=== PATIENT | female | born 1955 | race Caucasian/White ===

== ENCOUNTER → 2017-08-23 | Outpatient (CLI) | payer OTHER ==
--- NOTE | 2017-08-23 12:49 | BD ---
EXAMINATION TYPE: MG DEXA axial skeleton. DATE OF EXAM: 08/23/2017 Comparison: Prior DEXA bone scan February 27, 2013. CLINICAL HISTORY: Height: 68 inches Weight: 202 FRAX RISK QUESTIONS: Alcohol (3 or more units per day): no Family History (Parent hip fracture): no Glucocorticoids (More than 3mos): no (Ex: prednisone, prednisolone, methylprednisolone, dexamethasone, and hydrocortisone). History of Fracture in Adulthood: yes Secondary Osteoporosis: 1. Type 1 Diabetes: no 2. Hyperthyroidism: no 3. Menopause before 45: no 4. Malnutrition: no 5. Chronic liver disease: no Rheumatoid Arthritis: no Current Tobacco Use: no RISK FACTORS HISTORY OF: Spine Fracture: "tailbone" When: 4 years ago-steroid injections then Family History of Osteoporosis: yes, mother Active: yes Diet low in dairy products/other sources of calcium: no Postmenopausal woman: yes Take estrogen and/or progesterone medications: yes How long: over 10 years Lost more than 2 inches in height since high school: no Frequent falls: no Poor Health: no Hyperparathyroidism: no Adrenal Insufficiency: no MEDICATIONS: Prednisone or other steroids: no Thyroid Medications: no Osteoporosis Medications: no Additional Medications: Vitamin D, multivitamin; blood pressure med EXAM MEASUREMENTS: Bone mineral densitometry was performed using the [employer] System. Bone mineral density as measured about the Lumbar spine is: ----- L1-L4(G/cm2): 1.325 T Score Values are as follows: ----- L2: 1.0 ----- L3: 1.2 ----- L4: 1.1 ----- L1-L4: 1.2 Bone mineral density has: Decreased -1.8 since the study of 02/27/2013 Bone mineral density about the R hip (g/cm2): 1.148 Bone mineral density about the L hip (g/cm2): 1.117 T Score values are as follows: ----- R Neck: 0.8 ----- L Neck: 0.6 ----- R Total: 1.0 ----- L Total: 0.5 Bone mineral density has decreased -0.1 since the study of 02/27/2013 IMPRESSION: Normal (Values between +1 and -1 indicate normal bone mass). Consider repeating this study in 5 year s or sooner if there is some new clinical indication. NOTE: T-SCORE=SD OF THE YOUNG ADULT MEAN.
--- NOTE | 2017-08-24 11:36 | MM ---
Reason for exam: screening (asymptomatic). Last mammogram was performed 1 year and 4 months ago. History: Patient is postmenopausal. Family history of breast cancer in paternal aunt at age 70 and breast cancer in paternal aunt at age 75. Took hormonal contraceptives for 7 years. Taking estrogen for 5 years beginning at age 49. Taking progesterone for 5 years beginning at age 49. Taking other hormone for 5 years. Physical Findings: A clinical breast exam by your physician is recommended on an annual basis and results should be correlated with mammographic findings. MG 3D Screening Mammo W/Cad Bilateral CC and MLO view(s) were taken. Prior study comparison: April 20, 2016, bilateral MG 3d screening mammo w/cad. March 25, 2015, bilateral MG screening mammo w CAD. There are scattered fibroglandular densities. There is chronic nodularity bilaterally. No significant changes when compared with prior studies. ASSESSMENT: Benign, BI-RAD 2 RECOMMENDATION: Routine screening mammogram of both breasts in 1 year.
== END | disposition home or self-care (01) ==
LOC: RADMAMWWP 09:43
PROVIDERS: ATTEND Obstetrics & Gynecology
DX: Z12.31 Encounter for screening mammogram for malignant neoplasm of breast (principal); Z13.820 Encounter for screening for osteoporosis
CPT/HCPCS: 77063; 77067; 77080

== ENCOUNTER → 2018-08-08 | Outpatient (CLI) | payer OTHER ==
--- NOTE | 2018-08-08 12:13 | NM ---
EXAMINATION TYPE: NM stress cardiolite complete DATE OF EXAM: 08/08/2018 COMPARISON: NONE HISTORY: Chest pain TECHNIQUE: After the intravenous administration of 10.0 mCi Tc 99m Sestamibi - Rest images obtained 45 minutes post injection. The patient exercised using a PRAKASH protocol and 1 minute prior to peak exercise was injected with 25.6 mCi Tc 99m Sestamibi - Stress images obtained 15 minutes post injecti on. FINDINGS: Targeted heart rate was achieved during performance of the study. Review of stress and rest SPECT [place] ges demonstrates small matched defect involving the apical lateral portion of the myocardium. This co uld be artifactual. Gated analysis shows normal wall motion with an estimated left ventricular eject ion fraction of 68 %. IMPRESSION: No scintigraphic evidence for reversible ischemia
--- NOTE | 2018-08-08 13:36 | EST ---
EXERCISE STRESS DATE OF SERVICE: 08/08/2018 AGE: 63 SEX: Female HT: 5'8" WT: 215 pounds PROTOCOL: Cardiolite Osman STAGE: II DURATION OF EXERCISE: 6 minutes HEART RATE REST: 64 BLOOD PRESSURE REST: 139/80 MAXIMUM HEART RATE ACHIEVED: 148 MAXIMUM BLOOD PRESSURE: 204/84 85% MPHR: 133 100% MPHR: 157 METS: 7.9 INDICATIONS: Chest pain. CLINICAL INFORMATION: STRESS DATA: Pretesting physical examination showed a heart rate of 64, pressure is 139/80 mmHg. Baseline EKG showed sinus mechanism. The patient exercised on the treadmill according to Osman protocol for a total of 6 minutes and achieved 7.9 METs. Max heart rate was 148, which is about 94% of maximum predicted heart rate. Maximum blood pressure was was 204/84 mmHg. Clinically the patient did not have any symptoms of chest pain or discomfort but she felt tired. The EKG did not show any significant ST or T-wave abnormalities concerning for ischemia. CONCLUSION: 1. Average exercise tolerance. 2. Exaggerated blood pressure in response to exercise. 3. No evidence of any ST or T-wave abnormalities concerning for ischemia. 4. Please follow up on the Cardiolite portion on separate report. MMODL / IJN: [id number] /
== END | disposition home or self-care (01) ==
LOC: RADNMMAIN 08:13
PROVIDERS: ATTEND Family Medicine
DX: R07.9 Chest pain, unspecified (principal)
CPT/HCPCS: 93017; 78452; A9500

== ENCOUNTER → 2018-09-19 | Outpatient (CLI) | payer OTHER ==
--- NOTE | 2018-09-21 08:54 | MM ---
Reason for exam: screening (asymptomatic). Last mammogram was performed 1 year and 1 month ago. History: Patient is postmenopausal. Family history of breast cancer in paternal aunt at age 70 and breast cancer in paternal aunt at age 75. Took hormonal contraceptives for 7 years. Taking estrogen for 14 years beginning at age 49. Taking progesterone for 14 years beginning at age 49. Taking other hormone for 5 years. Physical Findings: A clinical breast exam by your physician is recommended on an annual basis and results should be correlated with mammographic findings. MG 3D Screening Mammo W/Cad Bilateral CC and MLO view(s) were taken. Prior study comparison: August 23, 2017, bilateral MG 3d screening mammo w/cad. April 20, 2016, bilateral MG 3d screening mammo w/cad. The breast tissue is almost entirely fat. There is chronic nodularity bilaterally. No significant changes when compared with prior studies. ASSESSMENT: Benign, BI-RAD 2 RECOMMENDATION: Routine screening mammogram of both breasts in 1 year.
== END | disposition home or self-care (01) ==
LOC: RADMAMWWP 09:15
PROVIDERS: ATTEND Obstetrics & Gynecology
DX: Z12.31 Encounter for screening mammogram for malignant neoplasm of breast (principal)
CPT/HCPCS: 77063; 77067

== ENCOUNTER → 2019-05-15 | Outpatient (CLI) | payer OTHER ==
--- NOTE | 2019-05-15 07:56 | MR ---
EXAMINATION TYPE: MR knee RT wo con DATE OF EXAM: 05/15/2019 COMPARISON: NONE HISTORY: Pain R knee, unilateral primary osteoarthritis, and derangement medial meniscus due to old t ear or injury all pertinent order. Inner knee pain for 3 to 4 months with swelling with history of si gnificant fall injury 20 years ago per patient. TECHNIQUE: Multiplanar, multisequence images of the knee is performed without IV contrast. FINDINGS: MEDIAL MENISCUS: Anterior horn is intact without tear. There is fraying along superior surface centra l avascular zone sagittal image 6 with oblique increased signal posterior horn extending to inferior articular surface. Medial bulging medial meniscus with abnormal signal seen on coronal images. LATERAL MENISCUS: Anterior and posterior horns are intact without tear. CRUCIATE LIGAMENTS: The anterior and posterior cruciate ligaments are intact and unremarkable. COLLATERAL LIGAMENTS: The medial collateral ligament and lateral collateral ligament complex are inta ct. Medial collateral ligament shows slight medial bulging and surrounding fluid coronal image 19. EXTENSOR MECHANISM: Visualized quadriceps and patellar tendons are intact. EFFUSION: Moderate to large size suprapatellar joint effusion. POPLITEAL CYST: No popliteal/hong cyst. TRICOMPARTMENT SPACES: Mild to moderate tricompartment joint space loss and mild spurring. CARTILAGE: Thinning of articular cartilage medial tibiofemoral compartment with some fissuring and ca rtilaginous loss posterior aspect patella consistent with chondromalacia patella. No full thickness l oss is identified. BONE MARROW SIGNAL: No focal abnormal marrow signal is appreciated. OTHER: No additional significant abnormality is appreciated. IMPRESSION: 1. Full-thickness tear posterior horn medial meniscus. Tear also involves the central body. 2. Mild to moderate tricompartment degenerative changes most prominent patellofemoral and medial tibi ofemoral compartments. 3. Moderate to large-sized suprapatellar joint effusion. 4. Mild MCL sprain injury.
== END | disposition home or self-care (01) ==
LOC: RADMRIMAIN 06:06
PROVIDERS: ATTEND Orthopaedic Surgery
DX: M17.11 Unilateral primary osteoarthritis, right knee (principal); S83.411A Sprain of medial collateral ligament of right knee, initial encounter; S83.241A Other tear of medial meniscus, current injury, right knee, initial encounter

== ENCOUNTER → 2020-08-14 | Outpatient (CLI) | payer MEDICARE, BC ==
--- NOTE | 2020-08-14 18:48 | BD ---
EXAMINATION TYPE: Axial Bone Density DATE OF EXAM: 08/14/2020 COMPARISON: 08/23/2017 CLINICAL HISTORY: 65-year-old female postmenopausal screening Height: 5 FT 8 06/24 IN Weight: 226 FRAX RISK QUESTIONS: Alcohol (3 or more units per day): NO Family History (Parent hip fracture): NO Glucocorticoids (More than 3mos): NO (Ex: prednisone, prednisolone, methylprednisolone, dexamethasone, and hydrocortisone). History of Fracture in Adulthood: YES Secondary Osteoporosis: 1. Type 1 Diabetes: NO 2. Hyperthyroidism: NO 3. Menopause before 45: NO 4. Malnutrition: NO 5. Chronic liver disease: FATTY Rheumatoid Arthritis: NO Current Tobacco Use: NO RISK FACTORS HISTORY OF: Family History of Osteoporosis: YES Active: YES Diet low in dairy products/other sources of calcium: NO Postmenopausal woman: AGE 55 Take estrogen and/or progesterone medications: TAKING HRT FOR APPROX 16 YEARS Lost more than 2 inches in height since high school: NO MEDICATIONS: Additional Medications: HYDROCHLOROTHIAZIDE, HRT Additional History: EXAM MEASUREMENTS: Bone mineral densitometry was performed using the [employer] System. Bone mineral density as measured about the Lumbar spine is: ----- L1-L4(G/cm2): 1.307 T Score Values are as follows: ----- L2: 1.0 ----- L3: 1.5 ----- L4: 0.2 ----- L1-L4: 1.1 Bone mineral density has: DECREASED -2.0 % since study of: 2017 Bone mineral density about the R hip (g/cm2): 1.122 Bone mineral density about the L hip (g/cm2): 1.130 T Score values are as follows: -----R Neck: 0.6 -----L Neck: 0.7 -----R Total: 0.8 -----L Total: 0.5 Bone mineral density has: DECREASED -1.1 % since study of: 2017 IMPRESSION: Normal (Values between +1 and -1 indicate normal bone mass). Consider repeating this study in 5 year s or sooner if there is some new clinical indication. NOTE: T-SCORE=SD OF THE YOUNG ADULT MEAN.
--- NOTE | 2020-08-16 11:36 | MM ---
Reason for exam: screening (asymptomatic). Last mammogram was performed 1 year and 11 months ago. History: Patient is postmenopausal. Family history of breast cancer in paternal aunt at age 70 and breast cancer in paternal aunt at age 75. Took hormonal contraceptives for 7 years. Taking estrogen for 16 years beginning at age 49. Taking progesterone for 16 years beginning at age 49. Taking other hormone for 5 years. Physical Findings: A clinical breast exam by your physician is recommended on an annual basis and results should be correlated with mammographic findings. MG 3D Screening Mammo W/Cad Bilateral CC and MLO view(s) were taken. Prior study comparison: September 19, 2018, bilateral MG 3d screening mammo w/cad. August 23, 2017, bilateral MG 3d screening mammo w/cad. There are scattered fibroglandular densities. There is chronic nodularity bilaterally. There is no discrete abnormality. ASSESSMENT: Benign, BI-RAD 2 RECOMMENDATION: Routine screening mammogram of both breasts in 1 year.
== END ==
LOC: RADMAMWWP 14:06
PROVIDERS: ATTEND Family Medicine
DX: Z12.31 Encounter for screening mammogram for malignant neoplasm of breast (principal); Z78.0 Asymptomatic menopausal state
CPT/HCPCS: 77063; 77067; 77080

== ENCOUNTER 2021-07-23 10:13 | Day surgery (SDC) | payer MEDICARE, BC ==
[2021-07-18 14:05] VITALS: BMI 31.9
[~2021-07-23 10:13] MED LIST: LACTATED RINGERS 1,000 ML IV SCH; LIDOCAINE 1% (10MG/ML) FOR IV START INTRADERMA PRN
[2021-07-23 10:44] VITALS: TEMP 98.4
[2021-07-23] MEDS ORDERED: fentaNYL (PF) 50 MCG/ML 2 ML AMP ONE (10:47)
[2021-07-23] MEDS ORDERED: PROPOFOL 10 MG/ML 20 ML VIAL IV ONE (10:47)
[2021-07-23] MEDS ORDERED: MIDAZOLAM 2 MG/2 ML VIAL ONE (10:47)
--- NOTE | 2021-07-23 11:10 | P.PCN ---
Date of Procedure: 07/23/21 Procedure(s) Performed: BRIEF HISTORY: Patient is a 66-year-old pleasant female scheduled for an elective colonoscopy as a part of screening for colorectal neoplasia. She had a brother who was diagnosed with colon cancer at age 60. PROCEDURE PERFORMED: Colonoscopy with snare polypectomy. PREOPERATIVE DIAGNOSIS: Screening for colon cancer and family history of colon cancer. IV sedation per Anesthesia. PROCEDURE: After informed consent was obtained, the patient, was brought into the endoscopy unit. IV sedation was administered by Anesthesia under continuous monitoring. Digital rectal examination was normal. Initially the Olympus CF-160 flexible video colonoscope was then inserted in the rectum, gradually advanced into the cecum without any difficulty. Careful examination was performed as the scope was gradually being withdrawn. Ileocecal valve and the appendiceal orifice were visualized and appeared normal. Prep was excellent. Mucosa of the cecum, ascending colon, appeared normal. The transverse colon there was a 1 mm polyp removed by snare polypectomy. Rest of the transverse colon, descending colon, sigmoid colon, and rectum appeared normal. Scattered sigmoid diverticula seen. Retroflexion was performed in the rectum and no lesions were seen. The patient tolerated the procedure well. IMPRESSION: 1 cm transverse colon polyp status post polypectomy Scattered sigmoid diverticulosis Recommendations Findings of this examination were discussed with the patient as well as a family.she was advised to follow with the biopsy results. If the biopsy reveals adenoma she can have a repeat colonoscopy in 3 years. .
[2021-07-23 11:28] VITALS: BP 155/67; PULSE 78; RESP 18
== END 2021-07-23 11:48 | disposition home or self-care (01) ==
LOC: ORWHC2ENDO 10:13
PROVIDERS: ATTEND Internal Medicine Gastroenterology
DX: Z12.11 Encounter for screening for malignant neoplasm of colon (principal); Z80.0 Family history of malignant neoplasm of digestive organs; K57.30 Diverticulosis of large intestine without perforation or abscess without bleeding; D12.3 Benign neoplasm of transverse colon
CPT/HCPCS: 45385; 88305; J2250; J3010; J2704

== ENCOUNTER → 2021-08-20 | Outpatient (CLI) | payer MEDICARE, BC ==
--- NOTE | 2021-08-21 14:41 | MM ---
Reason for exam: screening (asymptomatic). Last mammogram was performed 1 year ago. History: Patient is postmenopausal. Family history of breast cancer in paternal aunt at age 70 and breast cancer in paternal aunt at age 75. Took hormonal contraceptives for 7 years. Taking estrogen for 16 years beginning at age 49. Taking progesterone for 16 years beginning at age 49. Taking other hormone for 5 years. Physical Findings: A clinical breast exam by your physician is recommended on an annual basis and results should be correlated with mammographic findings. MG 3D Screening Mammo W/Cad Bilateral CC and MLO view(s) were taken. Prior study comparison: August 14, 2020, bilateral MG 3d screening mammo w/cad. September 19, 2018, bilateral MG 3d screening mammo w/cad. No significant changes when compared with prior studies. ASSESSMENT: Benign, BI-RAD 2 RECOMMENDATION: Routine screening mammogram of both breasts in 1 year.
== END | disposition home or self-care (01) ==
LOC: RADMAMWWP 15:51
PROVIDERS: ATTEND Obstetrics & Gynecology
DX: Z12.31 Encounter for screening mammogram for malignant neoplasm of breast (principal); Z78.0 Asymptomatic menopausal state; Z80.3 Family history of malignant neoplasm of breast
CPT/HCPCS: 77063; 77067

== ENCOUNTER → 2022-09-10 | Outpatient (CLI) | payer MEDICARE, BC ==
--- NOTE | 2022-09-11 09:07 | MM ---
Reason for Exam: Screening (asymptomatic). Last screening mammogram was performed 12 month(s) ago. Patient History: Menarche at age 13. First Full-Term at age 27. Postmenopausal. Patient has history of breast feeding. Currently using Estrogen, beginning at age 49 for 16 years. Currently using Progesterone, beginning at age 49 for 16 years. Patient used Hormonal Contraceptives for 7 years. Paternal aunt had breast cancer, age 70. Paternal aunt had breast cancer, age 75. Risk Values: [place] 5 year model risk: 1.9%. NCI Lifetime model risk: 6.4%. Prior Study Comparison: 09/19/2018 Bilateral Screening Mammogram, [facility]. 08/14/2020 Bilateral Screening Mammogram, [facility]. 08/20/2021 Bilateral Screening Mammogram, [facility]. Tissue Density: There are scattered fibroglandular densities. Findings: Analyzed By CAD. There is no suspicious group of microcalcifications or new suspicious mass in either breast. Chronic nodularity bilaterally. Overall Assessment: Benign, BI-RAD 2 Management: Screening Mammogram of both breasts in 1 year. A clinical breast exam by your physician is recommended on an annual basis and results should be correlated with mammographic findings. Electronically signed and approved by: Stephen Ellis D.O.
== END | disposition home or self-care (01) ==
LOC: RADMAMWWP 10:22
PROVIDERS: ATTEND Obstetrics & Gynecology
DX: Z12.31 Encounter for screening mammogram for malignant neoplasm of breast (principal); Z78.0 Asymptomatic menopausal state; Z80.3 Family history of malignant neoplasm of breast
CPT/HCPCS: 77063; 77067

== ENCOUNTER → 2023-04-14 | Outpatient (CLI) | payer MEDICARE, BC ==
[2023-04-14 17:43] VITALS: BP 173/96; PULSE 80; TEMP 98; BMI 35.6
--- NOTE | 2023-04-14 17:50 | P.BASOAP ---
Subjective Progress Note Date: 04/14/23 She has past ventral hernia with pain and risk of recurrent incarcerated hernia. Has scar that itches. Did not get injections due to cost. CT benefit. She has hypertrophic scarring. Colon with tubular adenoma. Objective - Vital Signs Vital signs: Vital Signs Temp 98 F 04/14/23 17:31 Pulse 80 04/14/23 17:31 Resp BP 173/96 04/14/23 17:31 Pulse Ox FiO2 Intake & Output 04/13/23 04/14/23 04/14/23 18:59 06:59 18:59 Weight 106.141 kg Assessment/Plan Plan: Date: 04/14/23 Initial Weight: Initial BMI: Current Weight: 106.141 kg Current BMI: 35.6 Type of Surgery: Total Volume in Band: Previous Volume: Volume Removed: Volume Added: Band Size:
== END ==
LOC: BARWHC3 16:25
PROVIDERS: ATTEND Surgery Plastic and Reconstructive Surgery
DX: Z53.9 Procedure and treatment not carried out, unspecified reason (principal)
CPT/HCPCS: 99211

== ENCOUNTER → 2023-04-22 | Outpatient (CLI) | payer MEDICARE, BC ==
[2023-04-22 13:42] LABS: ALT 29 U/L (4-34); AST 34 U/L (14-36); African American GFR (CKD) >90 (>60 ml/min/1.73 sqM); Albumin 4.6 g/dL (3.5-5.0); Albumin/Globulin Ratio 1.4; Alkaline Phosphatase 90 U/L (38-126); Anion Gap 10 mmol/L; Blood Urea Nitrogen 16 mg/dL (7-17); Carbon Dioxide 30 mmol/L (22-30); Chloride 100 mmol/L (98-107); Globulin 3.3 g/dL; Glucose 113 mg/dL (74-99); Non-African American GFR(CKD) >90 (>60 ml/min/1.73 sqM); Sodium 140 mmol/L (137-145); Total Bilirubin 0.6 mg/dL (0.2-1.3); Total Protein 7.9 g/dL (6.3-8.2)
[2023-04-22 14:59] LABS: INR 0.9 (<1.2); Partial Thromboplastin Time 23.8 sec (22.0-30.0); Prothrombin Time 10.1 sec (10.0-12.5)
--- NOTE | 2023-04-22 22:19 | CT ---
EXAMINATION TYPE: CT abdomen pelvis w con DATE OF EXAM: 04/22/2023 COMPARISON: None INDICATION: pre surgical DLP: 1464.7 mGycm, Automated exposure control for dose reduction was used. CONTRAST: 100 mL of Isovue 300. Study performed with Oral Contrast TECHNIQUE: Axial images were obtained from above the diaphragm to the pubic rami in the axial plane a t 5 mm thick sections. Reconstructed images are reviewed on the computer in the coronal plane. FINDINGS: Limited CT sections are obtained the lung bases. The lung bases are clear. Distal esophageal region appears somewhat love on the delayed images then the early images which could indicate a subtle hi atal hernia present. Stomach with contrast appears within normal limits. No suspicious changes of obs truction through the bowel loops. CT ABDOMEN: Liver: There is mild to moderate fatty infiltration of the liver. No discrete masses are evident. Spleen: Normal Pancreas: Normal Adrenal glands: The adrenal glands are normal. Gallbladder: Surgically absent Kidneys: No masses are evident. No hydronephrosis is present. No cysts are present. Delayed images were obtained through the kidneys, which remain unremarkable. Aorta: Normal Inferior vena cava: Normal. CT PELVIS: Oral contrast extends to the distal small bowel loops and cecum. Scattered diverticuli within the sig moid colon. There are loops of bowel which are incompletely distended or lack oral contrast limiting their evaluation. Appendix: Normal as visualized. Urinary bladder: Normal. Genitourinary structures: Uterus appears unremarkable. Adnexa are normal. Osseous structures: No suspicious lytic or sclerotic lesions. Mild facet degenerative changes within the lumbar spine. IMPRESSION: 1. Mild to moderate fatty infiltration of the liver. 2. Mild diverticulosis without acute diverticulitis. 3. Minimal hiatal hernia not excluded on this exam.
[2023-04-23 02:55] LABS: Prealbumin 25.9 mg/dL (18.0-42.0)
[2023-04-23 03:56] LABS: % Iron Saturation 25.54 (12.00-45.00); Iron 95 UG/DL (50-170); Phosphorus 2.5 mg/dL (2.4-5.1); Total Iron Binding Capacity 372 UG/DL (228-460)
[2023-04-23 04:40] LABS: HCT 49.8 % (37.2-46.3); HGB 15.7 d/dL (12.0-15.0); MCH 29.8 pg (27.0-32.0); MCHC 31.5 d/dL (32.0-37.0); MCV 94.7 FL (80.0-97.0); Mean Platelet Volume 11.7 FL (9.5-12.2); NRBC Per 100 WBC 0 X 10*3/uL (0.00-0.01); Platelet Count 310 X 10*3/uL (140-440); RBC 5.26 X 10*6/uL (4.10-5.20); RDW 13.2 % (11.5-14.5)
[2023-04-24 07:15] LABS: Zinc, Serum 120 ug/dL (60-130)
== END | disposition home or self-care (01) ==
LOC: RADCTMAIN 12:04
PROVIDERS: ATTEND Surgery Plastic and Reconstructive Surgery
DX: K57.30 Diverticulosis of large intestine without perforation or abscess without bleeding (principal); K44.9 Diaphragmatic hernia without obstruction or gangrene; K76.0 Fatty (change of) liver, not elsewhere classified; K91.2 Postsurgical malabsorption, not elsewhere classified; K50.90 Crohn's disease, unspecified, without complications; D50.8 Other iron deficiency anemias; E44.0 Moderate protein-calorie malnutrition; E45 Retarded development following protein-calorie malnutrition; K74.1 Hepatic sclerosis; N19 Unspecified kidney failure; T56.894A Toxic effect of other metals, undetermined, initial encounter
CPT/HCPCS: 84255; 84134; 84425; 80061; 80053; 82607; 82728; 82525; 82746; 83540; 83550; 83735; 84100; 84443; 84590; 84630; 85027; 85610; 85730; 82306; 83970; 83036; 80307; 74177; 36415; 93005; G0480; Q9967; 80323

== ENCOUNTER 2023-06-07 06:40 | Day surgery (SDC) | payer MEDICARE, BC ==
[2023-06-07] MEDS ORDERED: LIDOCAINE 1% (10MG/ML) FOR IV START INTRADERMA PRN (07:00)
[2023-06-07] MEDS ORDERED: LACTATED RINGERS 1,000 ML IV SCH (07:00)
[2023-06-07] MEDS ORDERED: DEXAMETHASONE SOD PHOSPHATE 4 MG/ML 1 ML VIAL IVP ONE (07:11)
[2023-06-07] MEDS ORDERED: ONDANSETRON 4 MG/2 ML VIAL IVP ONE (07:11)
[2023-06-07] MEDS ORDERED: ONDANSETRON 4 MG/2 ML VIAL ONE (07:14)
[2023-06-07] MEDS ORDERED: LACTATED RINGERS 1,000 ML IV ONE (07:15)
[2023-06-07 07:16] VITALS: TEMP 98.7
[2023-06-07] MEDS ORDERED: LIDOCAINE 1% INJ 10MG/ML (20 ML MDV) ONE (07:29)
[2023-06-07] MEDS ORDERED: PROPOFOL 10 MG/ML 20 ML VIAL IV ONE (07:29)
--- NOTE | 2023-06-07 07:33 | P.GSHP ---
History of Present Illness H&P Date: 06/07/23 CHIEF COMPLAINT: GERD HISTORY OF PRESENT ILLNESS: The patient is a 68-year-old female who presents reports gastroesophageal reflux disease. Upper endoscopy was offered for further evaluation and management. PAST MEDICAL HISTORY: Please see list. PAST SURGICAL HISTORY: Please see list. MEDICATIONS: Please see list. ALLERGIES: Please see list. SOCIAL HISTORY: No illicit drug use FAMILY HISTORY: No reports of Crohn disease or ulcerative colitis. REVIEW OF ORGAN SYSTEMS: CONSTITUTIONAL: No reports of fevers or chills. GI: Denies any blood in stools or constipation. PHYSICAL EXAM: VITAL SIGNS: Stable GENERAL: Well-developed and pleasant in no acute distress. HEENT: No scleral icterus. Extraocular movements grossly intact. Moist buccal mucosa. NECK: Supple without lymphadenopathy. CHEST: Unlabored respirations. Equal bilateral excursions. CARDIOVASCULAR: Regular rate and rhythm. Distal 2+ pulses. ABDOMEN: Soft, nondistended. MUSCULOSKELETAL: No clubbing, cyanosis, or edema. ASSESSMENT: 1. Gastroesophageal reflux disease PLAN: 1. Recommend proceeding with an upper endoscopy Past Medical History Past Medical History: Hyperlipidemia, Hypertension, Liver Disease Additional Past Medical History / Comment(s): FATTY LIVER. hx pancreatitis History of Any Multi-Drug Resistant Organisms: None Reported Past Surgical History: Section, Cholecystectomy, Hernia Repair, Joint Replacement, Orthopedic Surgery, Tonsillectomy Additional Past Surgical History / Comment(s): rt knee replacement, radha cataracts, incisional hernia repair, bunionectomy rt foot, neuroma removed rt foot, surgery for broken achilles tendon left foot, D&C x 2, radha cataracts Past Anesthesia/Blood Transfusion Reactions: Postoperative Nausea & Vomiting (PONV) Additional Past Anesthesia/Blood Transfusion Reaction / Comment(s): PONV AFTER GALL BLADDER SURGERY. Smoking Status: Never smoker - Past Family History Brother(s) Family Medical History: Cancer, Deep Vein Thrombosis (DVT) Additional Family Medical History / Comment(s): COLON CANCER Sister(s) Family Medical History: Deep Vein Thrombosis (DVT) Father Family Medical History: No Reported History Medications and Allergies Home Medications Medication Instructions Recorded Confirmed Type Multivit-Min/FA/Lycopen/Lutein 1 each PO DAILY 03/19/16 06/07/23 History [Centrum Silver Tablet] Tinnitus Formula Supplement 1 tab PO BID 03/19/16 06/07/23 History L.acidoph,Paracasei, B.lactis 1 each PO DAILY 07/18/21 06/07/23 History [Probiotic] Medroxyprogesterone Acetate 2.5 mg PO HS 07/18/21 06/07/23 History [Provera] Vitamin D3(Dose Unknown) 1 tab PO HS 07/18/21 06/07/23 History estradioL [Estradiol] 0.5 mg PO HS 07/18/21 06/07/23 History hydroCHLOROthiazide 50 mg PO QAM 07/18/21 06/07/23 History Ubidecarenone [Co Q-10] 30 mg PO DAILY 12/30/22 06/07/23 History Vitamin C/Biotin [Hair, Skin and 1 tab PO DAILY 12/30/22 06/07/23 History Nails Chew] Allergies Allergy/AdvReac Type Severity Reaction Status Date / Time Sulfa (Sulfonamide Allergy Severe Rash/Hives Verified 06/07/23 07:04 Antibiotics) tetracycline [Tetracycline] Allergy Rash/MUSCLE Verified 06/07/23 07:04 STIFFNESS,"joints froze" Surgical - Exam Vital Signs Temp Pulse Resp BP Pulse Ox 98.7 F 73 17 184/91 96 06/07/23 07:06 06/07/23 07:06 06/07/23 07:06 06/07/23 07:06 06/07/23 07:06
--- NOTE | 2023-06-07 07:48 | P.PCN ---
Date of Procedure: 06/07/23 Description of Procedure: PREOPERATIVE DIAGNOSIS: Gastroesophageal reflux disease. Morbid obesity. POSTOPERATIVE DIAGNOSIS: Gastroesophageal reflux disease. Morbid obesity. Gastritis. Diaphragmatic hiatal hernia OPERATION: Esophagogastroduodenoscopy with biopsies along esophagus, antrum and duodenum SURGEON: Beverly Hamm MD ANESTHESIA: MAC. INDICATIONS: The patient is a 68-year-old female who presents with reflux disease. Benefits and risks of the procedure were described. Informed consent was obtained. DESCRIPTION: The patient was brought into the endoscopy suite and laid in the left lateral decubitus position. An Olympus gastroscope was passed along the posterior oropharynx down to the distal esophagus where the squamocolumnar junction was encountered at 40 cm from the incisors. The stomach was entered and no bile reflux was found. Additional findings are listed below. Biopsies with cold forceps were obtained of the antrum. The first through third portion of the duodenum was examined. Retroflexion of the scope confirmed Hill grade 2 lower esophageal valve. The squamocolumnar junction demonstrated LA grade B erosive esophagitis. The stomach was desufflated. The patient tolerated the procedure well. FINDINGS: Squamocolumnar junction 40 cm from the incisors. Diaphragmatic hiatus at 43 cm. Hiatal hernia, 3 cm Hill grade 3 lower esophageal valve. LA grade B erosive esophagitis. Biopsies obtained Biopsies obtained of the duodenum. Chronic gastritis with biopsies obtained. Gastric polyps identified RECOMMENDATIONS: Upper endoscopy as needed. Plan - Discharge Summary Discharge Rx Participant: No New Discharge Prescriptions: Continue Tinnitus Formula Supplement 1 tab PO BID Multivit-Min/FA/Lycopen/Lutein [Centrum Silver Tablet] 1 each PO DAILY hydroCHLOROthiazide 50 mg PO QAM estradioL [Estradiol] 0.5 mg PO HS L.acidoph,Paracasei, B.lactis [Probiotic] 1 each PO DAILY Ubidecarenone [Co Q-10] 30 mg PO DAILY Medroxyprogesterone Acetate [Provera] 2.5 mg PO HS Vitamin D3(Dose Unknown) 1 tab PO HS Vitamin C/Biotin [Hair, Skin and Nails Chew] 1 tab PO DAILY Discharge Medication List Multivit-Min/FA/Lycopen/Lutein [Centrum Silver Tablet] 1 each PO DAILY 03/19/16 [History] Tinnitus Formula Supplement 1 tab PO BID 03/19/16 [History] L.acidoph,Paracasei, B.lactis [Probiotic] 1 each PO DAILY 07/18/21 [History] Medroxyprogesterone Acetate [Provera] 2.5 mg PO HS 07/18/21 [History] Vitamin D3(Dose Unknown) 1 tab PO HS 07/18/21 [History] estradioL [Estradiol] 0.5 mg PO HS 07/18/21 [History] hydroCHLOROthiazide 50 mg PO QAM 07/18/21 [History] Ubidecarenone [Co Q-10] 30 mg PO DAILY 12/30/22 [History] Vitamin C/Biotin [Hair, Skin and Nails Chew] 1 tab PO DAILY 12/30/22 [History] [facility]Ref[facility] [place] [facility] [place] [facility] Patient Instructions/Handouts: Hiatal Hernia (DC) Discharge Disposition: HOME SELF-CARE
[2023-06-07 08:03] VITALS: BP 152/82; PULSE 67; RESP 16
== END 2023-06-07 08:57 | disposition home or self-care (01) ==
LOC: ORWHC2ENDO 06:40
PROVIDERS: ATTEND Surgery Plastic and Reconstructive Surgery
DX: K29.50 Unspecified chronic gastritis without bleeding (principal); K31.89 Other diseases of stomach and duodenum; K21.9 Gastro-esophageal reflux disease without esophagitis; E66.01 Morbid (severe) obesity due to excess calories; K44.9 Diaphragmatic hernia without obstruction or gangrene; I10 Essential (primary) hypertension; E78.5 Hyperlipidemia, unspecified; K76.0 Fatty (change of) liver, not elsewhere classified; Z98.891 History of uterine scar from previous surgery; Z90.49 Acquired absence of other specified parts of digestive tract; Z90.89 Acquired absence of other organs; Z98.890 Other specified postprocedural states; Z80.0 Family history of malignant neoplasm of digestive organs; Z83.2 Family history of diseases of the blood and blood-forming organs and certain disorders involving the immune mechanism; Z88.2 Allergy status to sulfonamides; Z88.1 Allergy status to other antibiotic agents; Z79.899 Other long term (current) drug therapy
CPT/HCPCS: 88305; 43239; J1100; J2405; J2001; J2704

== ENCOUNTER → 2023-06-23 | Outpatient (CLI) | payer MEDICARE, BC ==
--- NOTE | 2023-06-23 15:37 | P.BASOAP ---
Subjective Progress Note Date: 06/23/23 DATE OF SERVICE: 06/23/23 CHIEF COMPLAINT: Morbid obesity HISTORY OF PRESENT ILLNESS: Connie Lord is a 68-year-old female who comes with morbid obesity. As a result of morbid obesity she has developed hypertensive heart disease including osteoarthritis of the lower back. She comes in looking into the sleeve gastrectomy. She is undergoing medical supervised weight loss. She reports pre-existing history of hypertrophic scarring. At height of 5 feet 8 inches, her ideal body weight is 163 pounds. She comes in 237 pounds. Her body mass index is 36.0. She is 74 pounds overweight. PAST MEDICAL HISTORY: 1. Morbid obesity due to excess calories 2. Body mass index of 36.0 3. Osteoarthritis of the knees. 4. Osteoarthritis of the lower back. 5. Hypertensive heart disease. 6. Gastroesophageal reflux disease 7. Fatty liver disease PAST SURGICAL HISTORY: 1. Section 2. Cholecystectomy 3. Incisional Hernia Repair 4. Joint Replacement 5. Tonsillectomy 6. Right knee replacement, 7. Bilateral cataract extraction 8. Bunionectomy Right foot, 9. Neuroma removed Right foot 10. Surgery for broken achilles tendon left foot 11. Dilatation and curettage HOME MEDICATIONS: Home Medications Medication Instructions Recorded Confirmed Multivit-Min/FA/Lycopen/Lutein 1 each PO DAILY 03/19/16 06/23/23 [Centrum Silver Tablet] Tinnitus Formula Supplement 1 tab PO BID 03/19/16 06/23/23 L.acidoph,Paracasei, B.lactis 1 each PO DAILY 07/18/21 06/23/23 [Probiotic] Medroxyprogesterone Acetate 2.5 mg PO HS 07/18/21 06/23/23 [Provera] Vitamin D3(Dose Unknown) 1 tab PO HS 07/18/21 06/23/23 estradioL [Estradiol] 0.5 mg PO HS 07/18/21 06/23/23 hydroCHLOROthiazide 50 mg PO QAM 07/18/21 06/23/23 Ubidecarenone [Co Q-10] 30 mg PO DAILY 12/30/22 06/23/23 Vitamin C/Biotin [Hair, Skin and 1 tab PO DAILY 12/30/22 06/23/23 Nails Chew] ALLERGIES: Allergies Allergy/AdvReac Type Severity Reaction Status Date / Time Sulfa (Sulfonamide Allergy Severe Rash/Hives Verified 06/07/23 07:04 Antibiotics) tetracycline [Tetracycline] Allergy Rash/MUSCLE Verified 06/07/23 07:04 STIFFNESS,"joints froze" SOCIAL HISTORY: No past tobacco use. FAMILY HISTORY: No family history of ulcerative colitis disease or Crohn's disease. Family history of morbid obesity. No lupus in the family. No reports of stomach or esophageal cancer. Has family history of the venous thrombosis and colon cancer. REVIEW OF ORGAN SYSTEMS: CONSTITUTIONAL: At height of 5 feet 8 inches, her ideal body weight is 163 pounds. She comes in 237 pounds. Her body mass index is 36.0. She is 74 pounds overweight. HEENT: Denies any active troubles with vision or hearing. ENDOCRINE: Has diabetes. No hypothyroidism. CARDIOVASCULAR: Past reports of palpitations or heart attacks or chest pain. Has hypertensive heart disease. RESPIRATORY: Has daytime somnolence. Has asthma. GASTROINTESTINAL: Denies any bright red blood per rectum. No diarrhea. No constipation. Has gastroesophageal reflux disease. History of pancreatitis. Has fatty liver disease. Has severe postoperative nausea vomiting GENITOURINARY: Denies bladder urgency. No recent blood in urine MUSCULOSKELETAL: Has lower back pain and joint pain. Has osteoarthritis of the knees. NEURO: No headaches. No seizure disorders. Has neuropathy. PSYCH: Has depression. No suicidal ideation. RHEUMATOLOGIC: No lupus. No rheumatoid arthritis. HEMATOLOGIC: Denies any abnormal bleeding or bruising. SKIN: No rash. No skin cancer. PHYSICAL EXAM: VITAL SIGNS: Height 5 foot 8 inches, weight 237 pounds. BMI 36.0 Vital Signs Temp 98 F 06/23/23 15:38 Pulse 80 06/23/23 15:38 Resp BP 162/85 06/23/23 15:38 Pulse Ox FiO2 GENERAL: Well-developed in no acute distress. HEENT: No scleral icterus. Extraocular movements grossly intact. Hears conversational speech. No nasal drainage. NECK: Supple without lymphadenopathy. CHEST: Nonlabored respirations with equal bilateral excursions. CARDIOVASCULAR: Regular rate and regular rhythm. Distal 2+ pulses. ABDOMEN: Obese, soft, nontender, nondistended. Hypertrophic scar MUSCULOSKELETAL: No clubbing, cyanosis. NEURO: No focal or lateralizing signs. Cranial nerves 2 through 12 grossly within normal limits. PSYCH: Appropriate affect. Alert and oriented to person, place and time. SKIN: Good skin turgor. Well perfused. EKG: Septal infarct, abnormal. STUDIES: CT of the abdomen and pelvis independently reviewed demonstrates umbilical ventral hernia. Presence of colonic diverticulosis. Presence of diastases recti. This is my independent interpretation. LABS: Bariatric labs reviewed demonstrates elevated WBC, leukocytosis; hemoglobin A1c elevated at 6.3, diabetes; total cholesterol elevated, PTH elevated Urine Drug Screen: Positive for alcohol use REPORTS: Cardiac risk assessment obtained ASSESSMENT: 1. Morbid obesity due to excess calories 2. Body mass index of 36.0 3. Osteoarthritis of the knees. 4. Osteoarthritis of the lower back. 5. Hypertensive heart disease. 6. Gastroesophageal reflux disease 7. Hypertension 8. Fatty liver disease 9. Diabetes type 2, [id number] 10. Leukocytosis 11. Hypercholesterolemia 12. Secondary hyperparathyroidism 13. Abnormal EKG 14. Positive urine drug screen for alcohol 15. Ventral hernia 16. Hypertrophic scarring PLAN: 1. She has hypertrophic scaring and recommend consultation with plastic surgeon for hypertrophic scarring. 2. She has positive urine metabolites screening for alcohol and recommend cessation for fatty liver disease advised 3. Bariatric options between a sleeve, band and a Corie-en-Y gastric bypass were reviewed in detail. The patient elected for a sleeve gastrectomy. Robotic assisted approach described. 4. The [place] [facility] Data was obtained. 5. An 8 page second-generation bariatric consent form was reviewed in detail including potential of bleeding, infection, leaks, adequate weight loss, nutritional deficiencies which the patient demonstrated understanding of the risks. 6. A 2 week high-protein low caloric 800 kcal diet described to address hepatomegaly. 7 Preoperative labs including complete metabolic panel and CBC with type and screen recommended. 8 DVT prophylaxis per [place] [facility]. 9 Antibiotic prophylaxis. 10. Inpatient hospitalization anticipated for more than 2 nights. 11. All questions and concerns were addressed with the patient. 12. She is elevated risk due to pre-existing comorbid conditions 13. Strict 2 week diet advised including hydration over 64 ounces daily and increased activity 14. The patient is at elevated risk for perioperative complications with sleep apnea and hypertensive heart disease. 15 Overall, patient has expressed understanding of bariatric care including postoperative diet and commitment of lifestyle. Patient should benefit from surgical intervention for correction of morbid obesity. Assessment/Plan Plan: Date: Initial Weight: Initial BMI: Current Weight: Current BMI: Type of Surgery: Total Volume in Band: Previous Volume: Volume Removed: Volume Added: Band Size:
[2023-06-23 15:43] VITALS: BP 162/85; PULSE 80; TEMP 98; BMI 36.0
== END ==
LOC: BARWHC3 15:04
PROVIDERS: ATTEND Surgery Plastic and Reconstructive Surgery
DX: E66.01 Morbid (severe) obesity due to excess calories (principal); M17.0 Bilateral primary osteoarthritis of knee; M47.816 Spondylosis without myelopathy or radiculopathy, lumbar region; I11.9 Hypertensive heart disease without heart failure; K21.9 Gastro-esophageal reflux disease without esophagitis; K76.0 Fatty (change of) liver, not elsewhere classified; E11.9 Type 2 diabetes mellitus without complications; E78.00 Pure hypercholesterolemia, unspecified; D72.829 Elevated white blood cell count, unspecified; E21.1 Secondary hyperparathyroidism, not elsewhere classified; R94.31 Abnormal electrocardiogram [ECG] [EKG]; K43.9 Ventral hernia without obstruction or gangrene; L91.0 Hypertrophic scar; Z02.83 Encounter for blood-alcohol and blood-drug test; Z68.36 Body mass index [BMI] 36.0-36.9, adult; Z88.2 Allergy status to sulfonamides; Z88.1 Allergy status to other antibiotic agents; Z79.899 Other long term (current) drug therapy
CPT/HCPCS: 99211

== ENCOUNTER → 2023-06-24 | Outpatient (CLI) | payer MEDICARE, BC ==
--- NOTE | 2023-06-24 23:50 | BD ---
EXAMINATION TYPE: Axial Bone Density DATE OF EXAM: 06/24/2023 CLINICAL HISTORY: 68 years old Female. ICD-10 CODE: Z12.31 SCREENING Height: 68 Weight: 232.9 FRAX RISK QUESTIONS: Alcohol (3 or more units per day): no Family History (Parent hip fracture): no Glucocorticoids (More than 3mos): no History of Fracture in Adulthood: coccyx Secondary Osteoporosis: 1. Type 1 Diabetes: no 2. Hyperthyroidism: no 3. Menopause before 45: no 4. Malnutrition: no 5. Chronic liver disease: Fatty Liver Rheumatoid Arthritis: no Current Tobacco Use: no RISK FACTORS HISTORY OF: Hip Fracture (Right/Left): no Spine Fracture: no History of Wrist Fracture: no Surgery to Spine/Hip(right/left)/Wrist (right/left): no Family History of Osteoporosis: mother, father Active: no Diet low in dairy products/other sources of calcium: no Postmenopausal woman: yes Take estrogen and/or progesterone medications: Estradial, Medroxyprogesterone How long: past 3 years Lost more than 2 inches in height since high school: no Frequent falls: no Poor Health: no Hyperparathyroidism: no Adrenal Insufficiency: no MEDICATIONS: Prednisone or other steroids: no Thyroid Medications: no Osteoporosis Medications: no Additional Medications: BP Meds, Multi Vit, Vit D, Fish Oil Additional History: EXAM MEASUREMENTS: Bone mineral densitometry was performed using the [employer] System. Bone mineral density as measured about the Lumbar spine is: ----- L1-L4(G/cm2): 1.346 T Score Values are as follows: ----- L1: 1.9 ----- L2: 1.5 ----- L3: 1.7 ----- L4: 0.6 ----- L1-L4: 1.4 Z Score Values are as follows: ----- L1: 2.4 ----- L2: 1.9 ----- L3: 2.1 ----- L4: 1.1 ----- L1-L4: 1.9 Bone mineral density has: increased 3.0 % since study of: 08/14/2020 Bone mineral density about the R hip (g/cm2): 1.137 Bone mineral density about the L hip (g/cm2): 1.152 T Score values are as follows: -----R Neck: 0.6 -----L Neck: 0.9 -----R Total: 1.0 -----L Total: 1.1 Z Score values are as follows: -----R Neck: 1.4 -----L Neck: 1.8 -----R Total: 1.6 -----L Total: 1.7 Bone mineral density has: increased 5.1 % since study of: 08/14/2020 FRAX%s: The graph provided illustrates a 9.6% chance for a major osteoporotic fx and a 0.2% chance fo r the hips probability for fx in 10 years time. IMPRESSION: Normal (Values between +1 and -1 indicate normal bone mass). Consider repeating this study in 5 year s or sooner if there is some new clinical indication. NOTE: T-SCORE=SD OF THE YOUNG ADULT MEAN.
== END | disposition home or self-care (01) ==
LOC: RADBDWWP 12:48
PROVIDERS: ATTEND Family Medicine
DX: M89.9 Disorder of bone, unspecified (principal); Z78.0 Asymptomatic menopausal state
CPT/HCPCS: 77080

== ENCOUNTER → 2023-07-05 | Outpatient (CLI) | payer MEDICARE, BC ==
[2023-07-05 14:49] VITALS: BMI 35.9
== END ==
LOC: BARWHC3 12:53
PROVIDERS: ATTEND Surgery Plastic and Reconstructive Surgery
DX: E66.01 Morbid (severe) obesity due to excess calories (principal); Z71.3 Dietary counseling and surveillance; Z68.35 Body mass index [BMI] 35.0-35.9, adult; Z88.2 Allergy status to sulfonamides; Z88.1 Allergy status to other antibiotic agents
CPT/HCPCS: 97804; 99211

== ENCOUNTER → 2023-07-23 | Outpatient (CLI) | payer MEDICARE, BC ==
--- NOTE | 2023-07-23 13:57 | CA ---
Transthoracic Echo Report Name: Connie Morse Age: 68 Gender: F : 1955 Exam Date: 07/23/2023 09:40 Exam Location: [facility] Ht (in): 68 Wt (lb): 224 Ordering Physician: Anders Crawford DO ([id number]) Attending/Referring Phys: Print Producer Tiki Dailey RDCS Procedure CPT: Indications: Z01.810 R0602 Cardiac Hx: Technical Quality: Fair Contrast 1: Total Dose (mL): Contrast 2: Total Dose (mL): MEASUREMENTS (Male / Female) Normal Values 2D ECHO LV Diastolic Diameter PLAX 3.9 cm 4.2 - 5.9 / 3.9 - 5.3 cm LV Systolic Diameter PLAX 2.5 cm IVS Diastolic Thickness 1.4 cm 0.6 - 1.0 / 0.6 - 0.9 cm LVPW Diastolic Thickness 1.1 cm 0.6 - 1.0 / 0.6 - 0.9 cm LV Relative Wall Thickness 0.6 RV Internal Dim ED PLAX 3.1 cm LA Volume 41.1 cm??? 18 - 58 / 22 - 52 cm??? LA Volume Index 18.3 cm???/m??? 16 - 28 cm???/m??? M-MODE Aortic Root Diameter MM 3.4 cm LA Systolic Diameter MM 4.0 cm LA Ao Ratio MM 1.2 AV Cusp Separation MM 2.3 cm DOPPLER AV Peak Velocity 154.0 cm/s AV Peak Gradient 9.5 mmHg AV Mean Velocity 110.3 cm/s AV Mean Gradient 5.5 mmHg AV Velocity Time Integral 33.6 cm AI Peak Velocity 388.4 cm/s AI Peak Gradient 60.3 mmHg AI Pressure Half Time 622.6 ms LVOT Peak Velocity 121.0 cm/s LVOT Peak Gradient 5.9 mmHg LVOT Velocity Time Integral 25.5 cm MV Area PHT 3.7 cm??? Mitral E Point Velocity 71.8 cm/s Mitral A Point Velocity 94.1 cm/s Mitral E to A Ratio 0.8 MV Deceleration Time 203.8 ms MV E' Velocity 5.9 cm/s Mitral E to MV E' Ratio 12.2 TR Peak Velocity 255.4 cm/s TR Peak Gradient 26.1 mmHg Right Ventricular Systolic Press 30.6 mmHg FINDINGS Left Ventricle Mildly increased left ventricular wall thickness. Left ventricular cavity size normal. Normal left ventricular systolic function with no obvious regional wall motion abnormalities. Left ventricular ejection fraction is estimated at 55-60 %. Right Ventricle Normal right ventricular size and function. Right ventricular systolic pressure within normal limits. Right Atrium Normal right atrial size. Left Atrium Normal left atrial size. Mitral Valve Structurally normal mitral valve. No mitral stenosis. Trace to mild mitral regurgitation. Aortic Valve Trileaflet aortic valve. No aortic stenosis. Trace aortic regurgitation. Tricuspid Valve Structurally normal tricuspid valve. Mild tricuspid regurgitation. Pulmonic Valve Structurally normal pulmonic valve. Trace pulmonic regurgitation. Pericardium No pericardial effusion. Aorta Normal size aortic root and proximal ascending aorta. CONCLUSIONS Left ventricular ejection fraction is estimated at 55-60 %. Normal left ventricular systolic function with no obvious regional wall motion abnormalities. Mildly increased left ventricular wall thickness. No significant valvular dysfunction No pericardial effusion Previewed by: Dr Jerrell Carlton (Electronically Signed) Final Date: 23 July 2023 13:56
--- NOTE | 2023-07-23 17:47 | CA ---
Stress Echo Report Connie Morse Age: 68 Gender: F : 1955 Exam Date: 07/23/2023 09:25 Exam Location: [facility] Ht (in): 68 Wt (lb): 224 Ordering Physician: Anders Swift DO ([id number]) Referring Physician: ANDERS SWIFT,, Bakery Clerk: OLGA ESTEBAN Technologist Procedure CPT: Indication: Z01.810 R0602 ICD-9 Codes: Rhythm: Patient History: Cardiac Medications: HYDROTHOROTHIAZIDE, Medications in past 24 hours: Contrast: N/A Stress Results Protocol: Osman Total dose(mL): NA Exercise Duration (min:sec): 6:[address] Depression (mm): Angina Score: Harkins Score: METS: 7.3 Resting HR: 85 Resting BP: 145 / 71 Peak HR: 141 Peak BP: 198 / 78 Max Predicted HR: 152 93 % Max Predicted HR Target HR: 129 Double Product: [id number] Stress Summary: BP Response: Reason for Termination: Reached target heart rate or work-load Cardiac Symptoms: NO SYMPTOMS ECG Analysis Resting ECG: Normal sinus rhythm, normal ECG Stress EC mm upsloping ST depressions in inferior lead which is nondiagnostic for ischemia Arrhythmia: No significant arrhythmias or ectopic beats Echo Analysis Resting Echo: Normal regional and global LV systolic function. No resting regional wall motion abnormality Peak Echo Analysis: Normal augmentation of global and segmental systolic function. No stress-induced regional wall motion of MEASUREMENTS (Male/Female) Normal Values CONCLUSIONS Fair exercise tolerance for patient's age achieving 7.3 METS Normal clinical and hemodynamic response to exercise Nonischemic ECG and echocardiographic response to exercise Overall normal treadmill echo stress test Dr Jerrell Carlton (Electronically Signed) Final Date: 23 July 2023 17:46
== END | disposition home or self-care (01) ==
LOC: RADNMMAIN 08:56
PROVIDERS: ATTEND Internal Medicine
DX: Z01.810 Encounter for preprocedural cardiovascular examination (principal); I51.7 Cardiomegaly; R06.02 Shortness of breath
CPT/HCPCS: 93306; 93351

== ENCOUNTER → 2023-08-04 | Outpatient (CLI) | payer MEDICARE, BC ==
[2023-08-04 15:39] LABS: ALT 39 U/L (8-44); AST 41 U/L (13-35); Albumin 4.2 g/dL (3.8-4.9); Albumin/Globulin Ratio 1.75 Ratio (1.60-3.17); Alkaline Phosphatase 64 U/L (41-126); BUN/Creat Ratio 27.67 Ratio (12.00-20.00); Blood Urea Nitrogen 16.6 mg/dL (9.0-27.0); Calcium 9.9 mg/dL (8.7-10.3); Carbon Dioxide 25.6 mmol/L (21.6-31.8); Chloride 94 mmol/L (96-109); Globulin 2.4 g/dL (1.6-3.3); Glucose 117 mg/dL (70-110); Potassium 3.5 mmol/L (3.5-5.5); Sodium 134 mmol/L (135-145); Total Bilirubin 0.5 mg/dL (0.3-1.2); Total Protein 6.6 g/dL (6.2-8.2)
[2023-08-04 15:42] LABS: Basophils # (A) 0.04 X 10*3/uL (0.00-0.10); Basophils % (A) 0.4 %; Eosinophils # (A) 0.08 X 10*3/uL (0.04-0.35); Eosinophils % (A) 0.8 %; HCT 44.2 % (37.2-46.3); HGB 14.8 g/dL (12.0-15.0); Lymphocytes # (A) 1.41 X 10*3/uL (0.90-5.00); Lymphocytes % (A) 13.6 %; MCH 29.6 pg (27.0-32.0); MCHC 33.5 g/dL (32.0-37.0); MCV 88.4 FL (80.0-97.0); Monocytes # (A) 0.65 X 10*3/uL (0.20-1.00); Monocytes % (A) 6.3 %; NRBC Per 100 WBC 0 X 10*3/uL (0.00-0.01); Neutrophils # (A) 8.16 X 10*3/uL (1.80-7.70); Neutrophils % (A) 78.5 %; Platelet Count 266 X 10*3/uL (140-440); RDW 12.3 % (11.5-14.5); WBC 10.38 X 10*3/uL (4.50-10.00)
== END | disposition home or self-care (01) ==
LOC: LABPAT 12:00
PROVIDERS: ATTEND Surgery Plastic and Reconstructive Surgery
DX: Z01.812 Encounter for preprocedural laboratory examination (principal)
CPT/HCPCS: 36415; 80053; 85025; 86850; 86900; 86901

== ENCOUNTER 2023-08-09 11:43 | Inpatient (IN) | payer MEDICARE, BC ==
--- NOTE | 2023-08-09 08:46 | P.GSHP ---
History of Present Illness H&P Date: 08/09/23 CHIEF COMPLAINT: Morbid obesity HISTORY OF PRESENT ILLNESS: Connie Lord is a 68-year-old female who comes with morbid obesity. As a result of morbid obesity she has developed hypertensive heart disease including osteoarthritis of the lower back. She comes in looking into the sleeve gastrectomy. She has completed cardiac, medical, bariatric risks assessment. At height of 5 feet 8 inches, her ideal body weight is 163 pounds. She comes in 237 pounds. Her body mass index is 36.0. She is 74 pounds overweight. PAST MEDICAL HISTORY: 1. Morbid obesity due to excess calories 2. Body mass index of 36.0 3. Osteoarthritis of the knees. 4. Osteoarthritis of the lower back. 5. Hypertensive heart disease. 6. Gastroesophageal reflux disease 7. Fatty liver disease PAST SURGICAL HISTORY: 1. Section 2. Cholecystectomy 3. Incisional Hernia Repair 4. Joint Replacement 5. Tonsillectomy 6. Right knee replacement, 7. Bilateral cataract extraction 8. Bunionectomy Right foot, 9. Neuroma removed Right foot 10. Surgery for broken achilles tendon left foot 11. Dilatation and curettage HOME MEDICATIONS: Home Medications Medication Instructions Recorded Confirmed Multivit-Min/FA/Lycopen/Lutein 1 each PO DAILY 03/19/16 06/23/23 [Centrum Silver Tablet] Tinnitus Formula Supplement 1 tab PO BID 03/19/16 06/23/23 L.acidoph,Paracasei, B.lactis 1 each PO DAILY 07/18/21 06/23/23 [Probiotic] Medroxyprogesterone Acetate 2.5 mg PO HS 07/18/21 06/23/23 [Provera] Vitamin D3(Dose Unknown) 1 tab PO HS 07/18/21 06/23/23 estradioL [Estradiol] 0.5 mg PO HS 07/18/21 06/23/23 hydroCHLOROthiazide 50 mg PO QAM 07/18/21 06/23/23 Ubidecarenone [Co Q-10] 30 mg PO DAILY 12/30/22 06/23/23 Vitamin C/Biotin [Hair, Skin and 1 tab PO DAILY 12/30/22 06/23/23 Nails Chew] ALLERGIES: Allergies Allergy/AdvReac Type Severity Reaction Status Date / Time Sulfa (Sulfonamide Allergy Severe Rash/Hives Verified 06/07/23 07:04 Antibiotics) tetracycline [Tetracycline] Allergy Rash/MUSCLE Verified 06/07/23 07:04 STIFFNESS,"joints froze" SOCIAL HISTORY: No past tobacco use. FAMILY HISTORY: No family history of ulcerative colitis disease or Crohn's disease. Family history of morbid obesity. No lupus in the family. No reports of stomach or esophageal cancer. Has family history of the venous thrombosis and colon cancer. REVIEW OF ORGAN SYSTEMS: CONSTITUTIONAL: At height of 5 feet 8 inches, her ideal body weight is 163 pounds. She comes in 237 pounds. Her body mass index is 36.0. She is 74 pounds overweight. HEENT: Denies any active troubles with vision or hearing. ENDOCRINE: Has diabetes. No hypothyroidism. CARDIOVASCULAR: Past reports of palpitations or heart attacks or chest pain. Has hypertensive heart disease. RESPIRATORY: Has daytime somnolence. Has asthma. GASTROINTESTINAL: Denies any bright red blood per rectum. No diarrhea. No constipation. Has gastroesophageal reflux disease. History of pancreatitis. Has fatty liver disease. Has severe postoperative nausea vomiting GENITOURINARY: Denies bladder urgency. No recent blood in urine MUSCULOSKELETAL: Has lower back pain and joint pain. Has osteoarthritis of the knees. NEURO: No headaches. No seizure disorders. Has neuropathy. PSYCH: Has depression. No suicidal ideation. RHEUMATOLOGIC: No lupus. No rheumatoid arthritis. HEMATOLOGIC: Denies any abnormal bleeding or bruising. SKIN: No rash. No skin cancer. PHYSICAL EXAM: VITAL SIGNS: Height 5 foot 8 inches, weight 237 pounds. BMI 36.0 GENERAL: Well-developed in no acute distress. HEENT: No scleral icterus. Extraocular movements grossly intact. Hears conversational speech. No nasal drainage. NECK: Supple without lymphadenopathy. CHEST: Nonlabored respirations with equal bilateral excursions. CARDIOVASCULAR: Regular rate and regular rhythm. Distal 2+ pulses. ABDOMEN: Obese, soft, nontender, nondistended. Hypertrophic scar MUSCULOSKELETAL: No clubbing, cyanosis. NEURO: No focal or lateralizing signs. Cranial nerves 2 through 12 grossly w ithin normal limits. PSYCH: Appropriate affect. Alert and oriented to person, place and time. SKIN: Good skin turgor. Well perfused. ASSESSMENT: 1. Morbid obesity due to excess calories 2. Body mass index of 36.0 3. Osteoarthritis of the knees. 4. Osteoarthritis of the lower back. 5. Hypertensive heart disease. 6. Gastroesophageal reflux disease 7. Hypertension 8. Fatty liver disease 9. Diabetes type 2, [id number] 10. Leukocytosis 11. Hypercholesterolemia 12. Secondary hyperparathyroidism 13. Abnormal EKG 14. Positive urine drug screen for alcohol 15. Ventral hernia 16. Hypertrophic scarring PLAN: 1. Bariatric options between a sleeve, band and a Corie-en-Y gastric bypass were reviewed in detail. The patient elected for a sleeve gastrectomy. Robotic assisted approach described. 2. The [place] [facility] Data was obtained. 3. An 8 page second-generation bariatric consent form was reviewed in detail including potential of bleeding, infection, leaks, adequate weight loss, nutritional deficiencies which the patient demonstrated understanding of the risks. 4. A 2 week high-protein low caloric 800 kcal diet described to address hepatomegaly. 5. Preoperative labs including complete metabolic panel and CBC with type and screen recommended. 6. DVT prophylaxis per [place] [facility]. 7. Antibiotic prophylaxis. 8. Inpatient hospitalization anticipated for more than 2 nights. 9. She is elevated risk due to pre-existing comorbid conditions 10. Strict 2 week diet advised including hydration over 64 ounces daily and increased activity Past Medical History Past Medical History: Hyperlipidemia, Hypertension, Liver Disease Additional Past Medical History / Comment(s): FATTY LIVER. hx pancreatitis History of Any Multi-Drug Resistant Organisms: None Reported Past Surgical History: Section, Cholecystectomy, Hernia Repair, Joint Replacement, Orthopedic Surgery, Tonsillectomy Additional Past Surgical History / Comment(s): rt knee replacement, radha cataracts, incisional hernia repair, bunionectomy rt foot, neuroma removed rt foot, surgery for broken achilles tendon left foot, D&C x 2, radha cataracts Past Anesthesia/Blood Transfusion Reactions: Postoperative Nausea & Vomiting (PONV) Additional Past Anesthesia/Blood Transfusion Reaction / Comment(s): PONV AFTER GALL BLADDER SURGERY. Smoking Status: Never smoker - Past Family History Brother(s) Family Medical History: Cancer, Deep Vein Thrombosis (DVT) Additional Family Medical History / Comment(s): COLON CANCER Sister(s) Family Medical History: Deep Vein Thrombosis (DVT) Father Family Medical History: No Reported History Medications and Allergies Home Medications Medication Instructions Recorded Confirmed Type Multivit-Min/FA/Lycopen/Lutein 1 each PO DAILY 03/19/16 08/03/23 History [Centrum Silver Tablet] Tinnitus Formula Supplement 1 tab PO BID 03/19/16 08/03/23 History L.acidoph,Paracasei, B.lactis 1 each PO DAILY 07/18/21 08/03/23 History [Probiotic] Medroxyprogesterone Acetate 2.5 mg PO HS 07/18/21 08/03/23 History [Provera] Vitamin D3(Dose Unknown) 1 tab PO HS 07/18/21 08/03/23 History estradioL [Estradiol] 0.5 mg PO HS 07/18/21 08/03/23 History hydroCHLOROthiazide 50 mg PO QAM 07/18/21 08/03/23 History Ubidecarenone [Co Q-10] 30 mg PO DAILY 12/30/22 08/03/23 History Vitamin C/Biotin [Hair, Skin and 1 tab PO DAILY 12/30/22 08/03/23 History Nails Chew] Allergies Allergy/AdvReac Type Severity Reaction Status Date / Time Sulfa (Sulfonamide Allergy Severe Rash/Hives Verified 08/03/23 10:12 Antibiotics) tetracycline [Tetracycline] Allergy Rash/MUSCLE Verified 08/03/23 10:12 STIFFNESS,"joints froze"
[2023-08-09] MEDS: LACTATED RINGERS 1,000 ML IV SCH (12:01)
[2023-08-09] MEDS: ACETAMINOPHEN TAB 500 MG TAB PO PRN (12:23)
[2023-08-09] MEDS: DEXAMETHASONE SOD PHOSPHATE 4 MG/ML 1 ML VIAL IV ONE (12:24)
[2023-08-09] MEDS: ONDANSETRON 4 MG/2 ML VIAL IVP PRN (12:24)
[2023-08-09] MEDS: PANTOPRAZOLE 40 MG/10 ML VIAL IVP STA (12:24)
[2023-08-09] MEDS: CHLORHEXIDINE GLUCONATE 15 ML CUP MUCOUS MEM STA (12:25)
[2023-08-09] MEDS: ALVIMOPAN 12 MG CAPSULE PO PRN (12:26)
[2023-08-09] MEDS: ENOXAPARIN 40 MG/0.4 ML SYRINGE SQ PRN (12:38)
[2023-08-09 13:26] LABS: Basophils % (A) 0 %; Eosinophils # (A) 0.1 k/uL (0-0.7); Eosinophils % (A) 1 %; HCT 42.2 % (34.0-46.0); HGB 14.3 gm/dL (11.4-16.0); Lymphocytes # (A) 1.1 k/uL (1.0-4.8); Lymphocytes % (A) 13 %; MCH 30.1 pg (25.0-35.0); MCHC 33.9 g/dL (31.0-37.0); MCV 88.8 fL (80.0-100.0); Mean Platelet Volume 8.6; Monocytes # (A) 0.5 k/uL (0-1.0); Monocytes % (A) 6 %; Neutrophils # (A) 6.4 k/uL (1.3-7.7); Neutrophils % (A) 78 %; Platelet Count 209 k/uL (150-450); RBC 4.75 m/uL (3.80-5.40); RDW 12.3 % (11.5-15.5); WBC 8.2 k/uL (3.8-10.6)
[2023-08-09] MEDS ORDERED: fentaNYL (PF) 50 MCG/ML 2 ML AMP ONE (13:35)
[2023-08-09] MEDS ORDERED: HYDROmorphone (PF) 1 MG/ML ONE (13:35)
[2023-08-09] MEDS ORDERED: SUCCINYLCHOLINE CHLORIDE 200 MG/10 ML VIAL IV ONE (13:35)
[2023-08-09] MEDS ORDERED: MIDAZOLAM 2 MG/2 ML VIAL ONE (13:35)
[2023-08-09] MEDS ORDERED: LIDOCAINE 1% INJ 10MG/ML (20 ML MDV) ONE (13:35)
[2023-08-09] MEDS ORDERED: ePHEDrine 50 MG/ML 1 ML VIAL ONE (13:35)
[2023-08-09] MEDS ORDERED: ROCURONIUM 10 MG/ML (5 ML VIAL) IV ONE (13:35)
[2023-08-09] MEDS ORDERED: NEOSTIGMINE 1 MG/ML 10 ML VIAL ONE (13:35)
[2023-08-09] MEDS ORDERED: PROPOFOL 10 MG/ML 20 ML VIAL IV ONE (13:35)
[2023-08-09] MEDS ORDERED: GLYCOPYRROLATE 0.2 MG/ML 2 ML VIAL ONE (13:35)
[2023-08-09 13:41] LABS: ALT 35 U/L (4-34); AST 44 U/L (14-36); African American GFR (CKD) >90 (>60 ml/min/1.73 sqM); Albumin 3.8 g/dL (3.5-5.0); Alkaline Phosphatase 65 U/L (38-126); Anion Gap 11 mmol/L; Blood Urea Nitrogen 11 mg/dL (7-17); Calcium 9.2 mg/dL (8.4-10.2); Carbon Dioxide 23 mmol/L (22-30); Chloride 100 mmol/L (98-107); Glucose 96 mg/dL (74-99); Non-African American GFR(CKD) >90 (>60 ml/min/1.73 sqM); Potassium 3.5 mmol/L (3.5-5.1); Sodium 134 mmol/L (137-145); Total Bilirubin 0.8 mg/dL (0.2-1.3); Total Protein 6.4 g/dL (6.3-8.2)
[2023-08-09] MEDS: LIDOCAINE 1%-EPI 1:100,000 50 ML VIAL SQ ONE ×2 (13:54→14:01)
[2023-08-09] MEDS ORDERED: NALOXONE 0.4 MG/ML 1 ML VIAL IV PRN (15:21)
[2023-08-09] MEDS: HYDROmorphone 0.5 MG/0.5 ML SYRINGE IVP PRN (15:41)
[2023-08-09] MEDS: MEPERIDINE 50 MG/ML SYRINGE IVP ONE (16:15)
[2023-08-09] MEDS: ONDANSETRON 4 MG/2 ML VIAL IVP ONE (16:54)
[2023-08-09] MEDS: ACETAMINOPHEN IV (For NPO) 1,000 MG in EMPTY BAG 1 BAG IVPB SCH (18:00)
--- NOTE | 2023-08-09 18:00 | P.OP ---
Date of Procedure: 08/09/23 Description of Procedure: SURGEON: KENYA GOLDEN MD PREOPERATIVE DIAGNOSES: 1. Morbid obesity due to excess calories 2. Body mass index of 36.0 3. Osteoarthritis of the knees. 4. Osteoarthritis of the lower back. 5. Hypertensive heart disease. 6. Gastroesophageal reflux disease 7. Hypertension 8. Fatty liver disease 9. Diabetes type 2, [id number] 10. Leukocytosis 11. Hypercholesterolemia 12. Secondary hyperparathyroidism 13. Abnormal EKG 14. Positive urine drug screen for alcohol 15. Ventral hernia 16. Hypertrophic scarring POSTOPERATIVE DIAGNOSES: 1. Morbid obesity due to excess calories 2. Body mass index of 36.0 3. Osteoarthritis of the knees. 4. Osteoarthritis of the lower back. 5. Hypertensive heart disease. 6. Gastroesophageal reflux disease 7. Hypertension 8. Fatty liver disease 9. Diabetes type 2, [id number] 10. Leukocytosis 11. Hypercholesterolemia 12. Secondary hyperparathyroidism 13. Abnormal EKG 14. Positive urine drug screen for alcohol 15. Ventral hernia 16. Hypertrophic scarring OPERATION: 1. Robotic assisted daVinci Xi laparoscopic sleeve gastrectomy with 40-Bahamian bougie, multiport. 2. Robotic assisted daVinci Xi laparoscopic lysis of adhesions, 1 hour 3. Intraoperative esophagogastroduodenoscopy. ANESTHESIA: Gen. local anesthetic ESTIMATED BLOOD LOSS: 5 mL SPECIMENS REMOVED: Sleeve gastrectomy COMPLICATIONS: None. FINDINGS: 1. Negative intraoperative esophagogastrojejunoscopy leak test. 2. No hepatomegaly and no large hiatus hernia. 3. Total of 6 staplers used including 2 - 60 mm green robot lai and 4 - 60 mm blue robot loads used to create the gastric sleeve. 4. Sleeve gastrectomy, 30 x 4 cm 5. Severe epigastric abdominal adhesions, omentum to abdominal wall 6. Epigastric abdominal wall mesh INDICATIONS: Connie Lord is a 68-year-old female who comes with morbid obesity. As a result of morbid obesity she has developed hypertensive heart disease including osteoarthritis of the lower back. She comes in looking into the sleeve gastrectomy. She has completed cardiac, medical, bariatric risks assessment. At height of 5 feet 8 inches, her ideal body weight is 163 pounds. She comes in 237 pounds. Her body mass index is 36.0. She is 74 pounds overweight. All surgical options for morbid obesity had been described using the [place] [facility] comorbidity resolution including complication risk score. A second-generation bariatric consent form was described in detail including the possibility of protein malnutrition, leaks, gastric stricture, venous thrombosis, gastroesophageal reflux disease, need for further surgery for which she demonstrated understanding. Benefits and risks of the procedure were described at length. Informed consent was obtained. DESCRIPTION: The patient was brought into the operating room theater. Preoperatively she had received Lovenox subcutaneously for DVT prophylaxis. Additionally she had Peridex oral solution as an oral decontaminant. After general induction, the abdomen was prepped and draped in standard sterile fashion. An Ioban draping was placed along the abdomen. A robotic da Kassandra Xi system was prepped and primed. At 15 cm from the xiphoid, proposed port sites were marked with indelible marker along the anterior axillary line bilaterally, mid axillary line bilaterally with each ports were marked 10 to 15 cm from each other. The robotic stapler port was marked for the right midclavicular line. A 5 mm 0 degrees laparoscopic trocar entry was performed along the left upper quadrant. The abdomen was insufflated to 15 mmHg pressure was tolerated well. Diagnostic laparoscopy demonstrated no injury to bowel, viscera, or mesentery. No evidence of large hiatus hernia was identified. The liver edge was sharp consistent with 2 week low-carb high-protein diet. Diagnostic laparoscopy demonstrated severe adhesions of the omentum to the epigastrium. A 8 mm port was placed along the left upper abdominal wall after exchanging the 5 mm port. A separate 8 mm port was placed along the left lateral abdominal wall. Please note that the ports were placed at least 20 cm away from the target anatomy. Care was taken to check each robotic arms were safely away from c ollision with the bed or the patient. At the epigastrium, a medium sized Ashley liver retractor was placed under direct visualization with the Iron Ammonium Nitrate Crystallizer placed under the right shoulder of the patient. Next, 12-mm robot stapler port was placed along the right upper quadrant. The camera 8-mm port was maintained along the epigastrium. The patient was repositioned in reverse Trendelenburg position at 21-degrees after lowering the bed. The robot was docked along the left side of the patient. Using a grasper for arm 4, a vessel sealer for arm 3, including grasper for arm 1, the robotic system was docked and primed as described. Instruments were interchanged by the assistant brand manager for stapler loads. The camera was placed at 30- degrees down. I had sat at the console. Attention was brought to the severe adhesions of the epigastrium. Adhesions were taken down using blunt dissection including vessel sealer. Prior mesh repair was found along the epigastrium. Extensive lysis of adhesions was performed releasing greater omentum from the abdominal and mesh. The pylorus was identified and 6 cm proximally along the greater curvature of the stomach, the short gastrics were mobilized upwards to the angle of His using a vessel sealer. Hemostasis was excellent during this portion of the procedure. Next, the upper pole of the stomach was adherent to the left ashlie, which was gently dissected free using atraumatic grasper. I went to the head of the bed and placed 40-Bahamian blunt bougie into the stomach. The bougie was readjusted by the nurse assembler equipment. Robotic stapler green load 60 mm 2 followed by blue 60 mm x 5 loads were used to create the sleeve. Initial firing was across the antrum of the stomach towards the angle of His within 4 cm of the pylorus. The staple line was linear without corkscrewing. The space from the angularis incisura of the sleeve was approximately 4 cm. I then went to the head of the bed to perform the intraoperative esophagogastroduodenoscopy leak test. The bougie was withdrawn. The upper pole of the stomach was bathed using normal saline solution. The scope was withdrawn with careful inspection along the staple line for which no leaks were found along the entire length. Additionally,the sleeve was completely hemostatic without any encroachment along the angularis incisura. Its topology was a soft "J". No stricture was encountered upon placement of the scope. The GI tract was desufflated. The patient tolerated this portion of the procedure well. The scope was completely withdrawn. The robot was undocked. I then rescrubbed into case, whereby the irrigation fluid was aspirated from the abdominal cavity. Tisseel fibrin sealant was placed along the entire staple length. Once dried the Ashley liver retractor was removed. Attention was now brought to removal of the specimen. The distal end of the sleeve gastrectomy specimen was brought out through the 12 mm port at the left upper quadrant. The specimen was gently removed en total. No contamination had occurred during this process. All instruments and pneumoperitoneum including irrigation fluid was removed from the abdominal cavity. The 12 mm port site was closed using 0-Vicryl and José Miguel Ruiz and irrigated with diluted hydrogen peroxide. The final incisions were closed using subcuticular interrupted suture of 4-0 Monocryl. Exofin was applied to the skin once the skin had been cleansed. OptiFoam dressing was placed along the stomach extraction site. The sleeve specimen was measured and checked also for leaks which none were found. At the end of the procedure, needle, sponge, and instrument count was verified correct by the surgical services assistant. The patient was taken to the postanesthesia care unit in stable condition. She had tolerated the procedure well. Intraoperative films and findings were reviewed with the patient's family.
[2023-08-09] MEDS: HYDROmorphone 0.5 MG/0.5 ML SYRINGE IVP ONE (18:50)
[2023-08-09] MEDS: SODIUM CHLORIDE 0.9% 2,000 ML IV ONE (19:55)
[2023-08-09] MEDS: HYDROmorphone 1 MG/ML 1 ML SYRINGE IVP PRN (20:00)
[2023-08-09] MEDS: ALBUTEROL NEBULIZED 2.5 MG/3 ML INHALATION SCH (20:04)
[2023-08-09] MEDS: SIMETHICONE 80 MG CHEWABLE PO SCH (20:07)
[2023-08-09] MEDS: DEXAMETHASONE SOD PHOSPHATE 10 MG/ML 1 ML VIAL IVP ONE (21:23)
[2023-08-09] MEDS: PANTOPRAZOLE 40 MG/10 ML VIAL IV SCH (21:25)
[2023-08-09] MEDS: ONDANSETRON 4 MG/2 ML VIAL IVP SCH (21:25)
[2023-08-09] MEDS: DEXAMETHASONE SOD PHOSPHATE 4 MG/ML 1 ML VIAL IVP SCH (23:56)
[2023-08-10] MEDS: 0.9% NACL WITH KCL 20 MEQ/L 1,000 ML IV SCH ×2 (02:27→09:20)
[2023-08-10 09:14] VITALS: TEMP 97.8
[2023-08-10] MEDS: ENOXAPARIN 40 MG/0.4 ML SYRINGE SQ SCH (10:05)
--- NOTE | 2023-08-10 12:45 | FL ---
SINGLE CONTRAST UPPER GI EXAMINATION: CLINICAL HISTORY: 68-year-old female postop bariatric surgery, spleen gastrectomy. TECHNIQUE: Single contrast exam performed with 30 ml Isovue-370 contrast. Total fluoroscopy time: 1 minute 58 seconds Total images: 25 DOSE AREA PRODUCT (DAP) UGY*M,MGY*CM: 514.18 FINDINGS: The patient swallowed oral contrast without delay. The patient did experience some nausea after the s wallows. Esophageal peristalsis and motility are within normal limits. There is prompt passage of co ntrast from the esophagus into the proximal portion of the stomach. Gradual distention of the proxima l stomach followed by intermittent passage of contrast across the gastrectomy into the distal stomach and eventually with into the duodenum. Some contrast and fluid remains distending the proximal stoma ch. There is no evidence of contrast extravasation to suggest leak. Trace postsurgical free air below the right hemidiaphragm. Possible small left pleural effusion. IMPRESSION: 1. Status post sleeve gastrectomy with mild to moderate relative obstruction at the proximal aspect o f the gastric sleeve, probably related to postoperative edema. 2. No evidence of leak. Trace post surgical free air below the right hemidiaphragm. There appears to be a small left pleural effusion.
[2023-08-10 12:58] LABS: Basophils # (A) 0.01 X 10*3/uL (0.00-0.10); Basophils % (A) 0.1 %; Eosinophils # (A) 0 X 10*3/uL (0.04-0.35); Eosinophils % (A) 0 %; HCT 41.6 % (37.2-46.3); HGB 13.6 g/dL (12.0-15.0); Lymphocytes # (A) 0.67 X 10*3/uL (0.90-5.00); Lymphocytes % (A) 5.6 %; MCH 29.3 pg (27.0-32.0); MCHC 32.7 g/dL (32.0-37.0); MCV 89.7 FL (80.0-97.0); Mean Platelet Volume 11.7 FL (9.5-12.2); Monocytes # (A) 0.24 X 10*3/uL (0.20-1.00); NRBC Per 100 WBC 0 X 10*3/uL (0.00-0.01); Neutrophils % (A) 91.9 %; Platelet Count 241 X 10*3/uL (140-440); RBC 4.64 X 10*6/uL (4.10-5.20); RDW 12.6 % (11.5-14.5); WBC 11.97 X 10*3/uL (4.50-10.00)
[2023-08-10 13:12] LABS: Blood Urea Nitrogen 8.2 mg/dL (9.0-27.0); Calcium 8.5 mg/dL (8.7-10.3); Carbon Dioxide 22.7 mmol/L (21.6-31.8); Chloride 101 mmol/L (96-109); Magnesium 1.8 mg/dL (1.5-2.4); Phosphorus 2.5 mg/dL (2.4-5.1); Potassium 4.4 mmol/L (3.5-5.5); Sodium 138 mmol/L (135-145)
[2023-08-10 14:16] VITALS: BMI 33.1
[2023-08-10 15:47] VITALS: BP 130/56; PULSE 60; RESP 20
--- NOTE | 2023-08-10 16:02 | P.DS ---
Providers Date of admission: 08/09/23 11:43 Expected date of discharge: 08/10/23 Attending physician: Beverly Hamm [facility] Course: Discharge diagnosis 1. Morbid obesity due to excess calories 2. Body mass index of 36.0 3. Osteoarthritis of the knees. 4. Osteoarthritis of the lower back. 5. Hypertensive heart disease. 6. Gastroesophageal reflux disease 7. Hypertension 8. Fatty liver disease 9. Diabetes type 2, [id number] 10. Leukocytosis 11. Hypercholesterolemia 12. Secondary hyperparathyroidism 13. Abnormal EKG 14. Positive urine drug screen for alcohol 15. Ventral hernia 16. Hypertrophic scarring 17. Leukocytosis likely secondary to Decadron Hospital course Connie Lord is a 68-year-old female who comes with morbid obesity. She is status post robotic laparoscopic sleeve gastrectomy and lysis of adhesions. She tolerated surgery well. Upper GI reported mild to moderate relative obstruction at the proximal aspect of the gastric sleeve. Probably related to postoperative edema. Patient is tolerating her diet. Pain is controlled. She is up and ambulating. Urinating without difficulty. Afebrile. She is stable for discharge. Physician Cardiac Technician note has been reviewed by physician. Signing provider agrees with the documented findings, assessment, and plan of care. Patient Condition at Discharge: Stable Plan - Discharge Summary Discharge Rx Participant: Yes New Discharge Prescriptions: New Ondansetron Odt [Zofran Odt] 4 mg PO Q8HR PRN #9 tab PRN Reason: Nausea bisacodyL [Dulcolax] 5 mg PO DAILY PRN #10 tab PRN Reason: Constipation Simethicone 40 mg/0.6 ml Drops [Mylicon Drops] 40 mg PO PCHS PRN #30 ml PRN Reason: Gas Omeprazole [PriLOSEC] 40 mg PO DAILY #30 cap Acetaminophen Tab [Tylenol] 1,000 mg PO Q6HR PRN #30 tablet PRN Reason: Pain Discontinued Tinnitus Formula Supplement 1 tab PO BID Multivit-Min/FA/Lycopen/Lutein [Centrum Silver Tablet] 1 each PO DAILY hydroCHLOROthiazide 50 mg PO QAM estradioL [Estradiol] 0.5 mg PO HS L.acidoph,Paracasei, B.lactis [Probiotic] 1 each PO DAILY Ubidecarenone [Co Q-10] 30 mg PO DAILY Medroxyprogesterone Acetate [Provera] 2.5 mg PO HS Vitamin D3(Dose Unknown) 1 tab PO HS Vitamin C/Biotin [Hair, Skin and Nails Chew] 1 tab PO DAILY Discharge Medication List Acetaminophen Tab [Tylenol] 1,000 mg PO Q6HR PRN #30 tablet 08/10/23 [Rx] Omeprazole [PriLOSEC] 40 mg PO DAILY #30 cap 08/10/23 [Rx] Ondansetron Odt [Zofran Odt] 4 mg PO Q8HR PRN #9 tab 08/10/23 [Rx] Simethicone 40 mg/0.6 ml Drops [Mylicon Drops] 40 mg PO PCHS PRN #30 ml 08/10/23 [Rx] bisacodyL [Dulcolax] 5 mg PO DAILY PRN #10 tab 08/10/23 [Rx] Follow up [facility]ment(s[facility] [place] [place] [facility] [place] [facility]13[facility]23 9:00 am Activity/Diet/Wound Care/Special Instructions: Liquid diet only for 2 weeks No lifting over 4 pounds in 4 weeks May Shower. No soaking in bath tubs for 2 weeks Please notify your surgeon if you develop nausea and vomiting including new onset of abdominal pain. Continue to use incentive spirometry to prevent pneumonias. Please continue to ambulate at home to prevent blood clots in legs. Follow-up at the bariatric center. May shower. Dressings to be discontinued by surgeon in the office. Drink 64 oz of fluid daily. Start protein shakes on . Notify bariatric center for temp over 101.0, increased pain, drainage from incisions. No straws or carbonated beverages. Liquid diet only. Sugar content should be less than 6 g to avoid dumping syndrome. Take MOM for constipation. CRUSH, OPEN, OR CUT TABLETS LARGER THAN A SIZE OF A TIC TAC Do not take any supplements, vitamins, hydrochlorothiazide, hormone supplements until seen by surgeon Discharge Disposition: HOME SELF-CARE
== END 2023-08-10 17:15 | disposition home or self-care (01) | DRG 621 ==
LOC: 2ORMAIN 11:43 → 4SSUR 19:14
PROVIDERS: ADMIT Surgery Plastic and Reconstructive Surgery; ATTEND Surgery Plastic and Reconstructive Surgery
PROC: 0DNU4ZZ Release Omentum, Percutaneous Endoscopic Approach (ICD-10-PCS; 2023-08-09)
PROC: 0DNW4ZZ Release Peritoneum, Percutaneous Endoscopic Approach (ICD-10-PCS; 2023-08-09)
PROC: 0DJ08ZZ Inspection of Upper Intestinal Tract, Via Natural or Artificial Opening Endoscopic (ICD-10-PCS; 2023-08-09)
PROC: 8E0W4CZ Robotic Assisted Procedure of Trunk Region, Percutaneous Endoscopic Approach (ICD-10-PCS; 2023-08-09)
PROC: 0DB64Z3 Excision of Stomach, Percutaneous Endoscopic Approach, Vertical (ICD-10-PCS; principal; 2023-08-09 12:50)
DX: E66.01 Morbid (severe) obesity due to excess calories (principal); Z68.35 Body mass index [BMI] 35.0-35.9, adult; D72.829 Elevated white blood cell count, unspecified; E78.00 Pure hypercholesterolemia, unspecified; E21.1 Secondary hyperparathyroidism, not elsewhere classified; K76.0 Fatty (change of) liver, not elsewhere classified; T38.0X5A Adverse effect of glucocorticoids and synthetic analogues, initial encounter; X58.XXXA Exposure to other specified factors, initial encounter; K21.9 Gastro-esophageal reflux disease without esophagitis; M17.0 Bilateral primary osteoarthritis of knee; Z68.36 Body mass index [BMI] 36.0-36.9, adult; H93.19 Tinnitus, unspecified ear; E11.9 Type 2 diabetes mellitus without complications; M19.09 Primary osteoarthritis, other specified site; L91.0 Hypertrophic scar; I10 Essential (primary) hypertension; K66.0 Peritoneal adhesions (postprocedural) (postinfection); Z96.651 Presence of right artificial knee joint; K43.9 Ventral hernia without obstruction or gangrene; Z98.42 Cataract extraction status, left eye; Z98.41 Cataract extraction status, right eye
CPT/HCPCS: 74240; 80051; 80053; 82310; 82565; 83735; 84100; 84520; 85025; 88307; 94760

== ENCOUNTER → 2023-08-13 | Outpatient (CLI) | payer MEDICARE, BC ==
--- NOTE | 2023-08-13 09:43 | P.BASOAP ---
Subjective Progress Note Date: 08/13/23 DATE OF SERVICE: 08/13/23 CHIEF COMPLAINT: Status post sleeve gastrectomy HISTORY OF PRESENT ILLNESS: Connie Lord is a 68-year-old female status post sleeve gastrectomy 08/09/2023. She is postop day 4. She reports new allergies to adhesive tape with redness. No infection. She reports pain actually as well controlled. No moderate gastroesophageal reflux disease. She denies dysphagia. Urine is clear. She has not resumed her diuretic. At height of 5 feet 8 inches, her ideal body weight is 163 pounds. She comes in 218 pounds from 237 pounds, 1 month ago. She has lost 21 pounds in 1 month. Her body mass index is 36.0. She is 74 pounds overweight. PHYSICAL EXAM: VITAL SIGNS: Height 5 foot 8 inches, weight 218 pounds. BMI 33.1 GENERAL: Well-developed in no acute distress. HEENT: No scleral icterus. Extraocular movements grossly intact. Hears conversational speech. No nasal drainage. NECK: Supple without lymphadenopathy. CHEST: Nonlabored respirations with equal bilateral excursions. CARDIOVASCULAR: Regular rate and regular rhythm on repeat. Distal 2+ pulses. ABDOMEN: Incisions clean dry intact with contact dermatitis from adhesive glue. Dressing discontinued without infection. MUSCULOSKELETAL: No clubbing, cyanosis. NEURO: No focal or lateralizing signs. Cranial nerves 2 through 12 grossly within normal limits. PSYCH: Appropriate affect. Alert and oriented to person, place and time. SKIN: Good skin turgor. Well perfused. PATHOLOGY: Reviewed. Benign gastric tissue for sleeve gastrectomy ASSESSMENT: 1. Morbid obesity due to excess calories 2. Body mass index of 36.0 3. Osteoarthritis of the knees. 4. Osteoarthritis of the lower back. 5. Hypertensive heart disease. 6. Gastroesophageal reflux disease 7. Hypertension 8. Fatty liver disease 9. Diabetes type 2, [id number] 10. Leukocytosis 11. Hypercholesterolemia 12. Secondary hyperparathyroidism 13. Abnormal EKG 14. Positive urine drug screen for alcohol 15. Ventral hernia 16. Hypertrophic scarring 17. Status post sleeve gastrectomy 18. Contact dermatitis from adhesive glue, new allergy PLAN: 1. New allergies include skin adhesive glue 2. Discontinue diuretic to prevent risk for dehydration 3. May restart hormonal therapy 4. Recommend Zyrtec, Claritin, Benadryl for allergic reaction to adhesive tape along the skin. 5. Hydrocortisone cream may also be applied to the skin for adhesive contact dermatitis Assessment/Plan Plan: Date: Initial Weight: Initial BMI: Current Weight: Current BMI: Type of Surgery: Total Volume in Band: Previous Volume: Volume Removed: Volume Added: Band Size:
[2023-08-13 11:01] VITALS: BP 153/91; PULSE 108; RESP 13; TEMP 98.4; BMI 33.1
== END ==
LOC: BARWHC3 09:07
PROVIDERS: ATTEND Surgery Plastic and Reconstructive Surgery
DX: E66.01 Morbid (severe) obesity due to excess calories (principal); M48.16 Ankylosing hyperostosis [Forestier], lumbar region; M17.0 Bilateral primary osteoarthritis of knee; I11.0 Hypertensive heart disease with heart failure; K21.9 Gastro-esophageal reflux disease without esophagitis; I10 Essential (primary) hypertension; K76.0 Fatty (change of) liver, not elsewhere classified; E11.9 Type 2 diabetes mellitus without complications; D72.829 Elevated white blood cell count, unspecified; E78.00 Pure hypercholesterolemia, unspecified; E03.9 Hypothyroidism, unspecified; K43.9 Ventral hernia without obstruction or gangrene; F10.20 Alcohol dependence, uncomplicated; L91.0 Hypertrophic scar; Z98.890 Other specified postprocedural states; Z88.2 Allergy status to sulfonamides; Z91.048 Other nonmedicinal substance allergy status; Z88.1 Allergy status to other antibiotic agents; Z68.36 Body mass index [BMI] 36.0-36.9, adult
CPT/HCPCS: 99211

== ENCOUNTER → 2023-08-16 | Outpatient (CLI) | payer MEDICARE, BC ==
[2023-08-16] MEDS: DEXAMETHASONE SOD PHOSPHATE 10 MG/ML 1 ML VIAL IM NR (11:42)
[2023-08-16 12:09] VITALS: BP 147/96; PULSE 101; RESP 16; TEMP 97.6
== END ==
LOC: PROCWHC3 11:33
PROVIDERS: ATTEND Surgery Plastic and Reconstructive Surgery
DX: T78.40XA Allergy, unspecified, initial encounter (principal); Z88.2 Allergy status to sulfonamides; Z88.1 Allergy status to other antibiotic agents; Z91.048 Other nonmedicinal substance allergy status
CPT/HCPCS: 96372; J1100

== ENCOUNTER → 2023-08-18 | Outpatient (CLI) | payer MEDICARE, BC ==
[2023-08-18] MEDS: DEXAMETHASONE SOD PHOSPHATE 10 MG/ML 1 ML VIAL IM NR (15:30)
[2023-08-19 08:19] VITALS: BP 129/78; PULSE 76; RESP 16; TEMP 97.8
== END ==
LOC: PROCWHC3 15:00
PROVIDERS: ATTEND Surgery Plastic and Reconstructive Surgery
DX: T78.40XA Allergy, unspecified, initial encounter (principal)
CPT/HCPCS: 96372; J1100

== ENCOUNTER → 2023-08-18 | Outpatient (CLI) | payer MEDICARE, BC ==
[~2023-08-18] MED LIST changes: +DEXAMETHASONE SOD PHOSPHATE 10 MG/ML 1 ML VIAL IM STA; -LACTATED RINGERS 1,000 ML IV SCH; -LIDOCAINE 1% (10MG/ML) FOR IV START INTRADERMA PRN; +TRIAMCINOLONE 0.1% CREAM 80 GM TUBE TOPICAL SCH
--- NOTE | 2023-08-18 15:18 | P.BASOAP ---
Subjective Progress Note Date: 08/18/23 She comes in with worsening skin contact dermatitis. Had steroid shot 10 mg with minimal results. GIve increase 20 mg and add triamciniolone cream. NO GERD> FU in 1 month. Objective - Vital Signs Vital signs: Vital Signs Temp 97.8 F 08/18/23 14:57 Pulse 71 08/18/23 14:57 Resp BP 155/78 08/18/23 14:57 Pulse Ox FiO2 Intake & Output 08/17/23 08/18/23 08/18/23 18:59 06:59 18:59 Weight 97.069 kg Assessment/Plan Plan: Date: 08/18/23 Initial Weight: Initial BMI: Current Weight: 97.069 kg Current BMI: 32.5 Type of Surgery: Total Volume in Band: Previous Volume: Volume Removed: Volume Added: Band Size:
[2023-08-18 15:23] VITALS: BP 155/78; PULSE 71; TEMP 97.8; BMI 32.5
== END ==
LOC: BARWHC3 14:29
PROVIDERS: ATTEND Surgery Plastic and Reconstructive Surgery
DX: Z53.9 Procedure and treatment not carried out, unspecified reason (principal)
CPT/HCPCS: 97803; G0463; 99211

== ENCOUNTER → 2023-09-08 | Outpatient (CLI) | payer MEDICARE, BC ==
[2023-09-08 15:11] VITALS: BP 167/89; PULSE 67; RESP 16; TEMP 98.1; BMI 31.3
--- NOTE | 2023-09-08 15:15 | P.BASOAP ---
Subjective Progress Note Date: 09/08/23 She gets 7 hrs of sleep. Lost 30 pounds in 2 months. Redness along skin is better. Food journal. Has steps.Has low protein. She wants to be 155 pounds. 1 more protein shake. Has morning allergies. Calories of 800 or less. Steps of 5000. Objective - Vital Signs Vital signs: Vital Signs Temp 98.1 F 09/08/23 14:40 Pulse 67 09/08/23 14:40 Resp 16 09/08/23 14:40 BP 167/89 09/08/23 14:40 Pulse Ox FiO2 Intake & Output 09/07/23 09/08/23 09/08/23 18:59 06:59 18:59 Weight 93.44 kg Assessment/Plan Plan: Date: 09/08/23 Initial Weight: 107.501 kg Initial BMI: 36.0 Current Weight: 93.44 kg Current BMI: 31.3 Type of Surgery: Vertical Sleeve Gastrectomy Total Volume in Band: Previous Volume: Volume Removed: Volume Added: Band Size:
== END ==
LOC: BARWHC3 13:38
PROVIDERS: ATTEND Surgery Plastic and Reconstructive Surgery
DX: E66.01 Morbid (severe) obesity due to excess calories (principal); Z53.9 Procedure and treatment not carried out, unspecified reason
CPT/HCPCS: 97803; G0463; 99211

== ENCOUNTER → 2023-09-30 | Outpatient (CLI) | payer MEDICARE, BC ==
[2023-09-30 17:16] LABS: Partial Thromboplastin Time 25.1 sec (22.0-30.0); Prothrombin Time 10.9 sec (10.0-12.5)
[2023-09-30 18:50] LABS: HCT 45.5 % (37.2-46.3); HGB 14.5 g/dL (12.0-15.0); MCH 28.9 pg (27.0-32.0); MCHC 31.9 g/dL (32.0-37.0); MCV 90.8 FL (80.0-97.0); Mean Platelet Volume 12.9 FL (9.5-12.2); NRBC Per 100 WBC 0 X 10*3/uL (0.00-0.01); Platelet Count 231 X 10*3/uL (140-440); RBC 5.01 X 10*6/uL (4.10-5.20); RDW 14.5 % (11.5-14.5); WBC 11.15 X 10*3/uL (4.50-10.00)
[2023-09-30 19:34] LABS: % Iron Saturation 26.48 (12.00-45.00); ALT 28 U/L (8-44); AST 27 U/L (13-35); Albumin 4.3 g/dL (3.8-4.9); Albumin/Globulin Ratio 1.95 Ratio (1.60-3.17); Alkaline Phosphatase 86 U/L (41-126); BUN/Creat Ratio 26.83 Ratio (12.00-20.00); Blood Urea Nitrogen 16.1 mg/dL (9.0-27.0); Calcium 9.6 mg/dL (8.7-10.3); Carbon Dioxide 21.4 mmol/L (21.6-31.8); Chloride 107 mmol/L (96-109); Chol/HDL Ratio 3.34 Ratio; Globulin 2.2 g/dL (1.6-3.3); Glucose 133 mg/dL (70-110); Iron 76 UG/DL (50-170); LDL Cholesterol,Calculated 127.8 mg/dL (0.0-131.0); Magnesium 1.8 mg/dL (1.5-2.4); Phosphorus 3.3 mg/dL (2.4-5.1); Potassium 4.1 mmol/L (3.5-5.5); Sodium 140 mmol/L (135-145); Total Bilirubin 0.4 mg/dL (0.3-1.2); Total Iron Binding Capacity 287 UG/DL (228-460); Total Protein 6.5 g/dL (6.2-8.2)
[2023-10-01 11:58] LABS: Zinc, Serum 64 ug/dL (60-130)
== END | disposition home or self-care (01) ==
LOC: LABWHC1 14:28
PROVIDERS: ATTEND Surgery Plastic and Reconstructive Surgery
DX: E89.1 Postprocedural hypoinsulinemia (principal); E66.01 Morbid (severe) obesity due to excess calories; D50.8 Other iron deficiency anemias; K91.2 Postsurgical malabsorption, not elsewhere classified; E44.0 Moderate protein-calorie malnutrition; E44.1 Mild protein-calorie malnutrition; E45 Retarded development following protein-calorie malnutrition; E46 Unspecified protein-calorie malnutrition; E55.9 Vitamin D deficiency, unspecified; K74.1 Hepatic sclerosis; N19 Unspecified kidney failure; T56.894A Toxic effect of other metals, undetermined, initial encounter; K50.90 Crohn's disease, unspecified, without complications
CPT/HCPCS: 36415; 80053; 80061; 82306; 82525; 82607; 82728; 82746; 83036; 83540; 83550; 83735; 83970; 84100; 84134; 84255; 84425; 84443; 84590; 84630; 85027; 85610; 85730

== ENCOUNTER → 2023-11-24 | Outpatient (CLI) | payer MEDICARE, BC ==
--- NOTE | 2023-11-25 14:03 | MM ---
Reason for Exam: Screening (asymptomatic). Last mammogram was performed 1 year(s) and 3 month(s) ago. Patient History: Menarche at age 13. First Full-Term at age 27. Postmenopausal. Patient has history of breast feeding. Currently using Estrogen, beginning at age 49 for 16 years. Currently using Progesterone, beginning at age 49 for 16 years. Patient used Hormonal Contraceptives for 7 years. Paternal aunt had breast cancer, age 70. Paternal aunt had breast cancer, age 75. Risk Values: Shawanda 5 year model risk: 1.9%. NCI Lifetime model risk: 6.2%. Prior Study Comparison: 08/14/2020 Bilateral Screening Mammogram, [facility]. 08/20/2021 Bilateral Screening Mammogram, [facility]. 09/10/2022 Bilateral MG 3D screening mammo w/cad, [facility]. Tissue Density: There are scattered areas of fibroglandular density. Findings: Analyzed By CAD. Right breast: There is no suspicious group of microcalcifications or new suspicious mass. Left breast: There is no suspicious group of microcalcifications or new suspicious mass. Overall Assessment: Negative, BI-RAD 1 Management: Screening Mammogram of both breasts in [address] [facility] will attempt to contact patient to return for supplemental views and ultrasound if indicated. Patient should continue monthly self-breast exams. A clinical breast exam by your physician is recommended on an annual basis. This exam should not preclude additional follow-up of suspicious palpable abnormalities. Note on Shawanda scores and lifetime risk: 1. A Shawanda score greater than 3% is considered moderate risk. If this is the case, consider specialist referral to assess eligibility for a risk reducing agent. 2. If overall lifetime risk for the development of breast cancer is 20% or higher, the patient may qualify for future screening with alternating mammogram and breast MRI. Electronically signed and approved by: Edgar Spaulding DO
== END | disposition home or self-care (01) ==
LOC: RADMAMWWP 12:53
PROVIDERS: ATTEND Family Medicine
DX: Z12.31 Encounter for screening mammogram for malignant neoplasm of breast (principal); Z78.0 Asymptomatic menopausal state; Z80.3 Family history of malignant neoplasm of breast
CPT/HCPCS: 77063; 77067

== ENCOUNTER → 2023-11-24 | Outpatient (CLI) | payer MEDICARE, BC ==
[2023-11-24 14:08] VITALS: BP 151/69; PULSE 67; RESP 16; TEMP 98.9; BMI 29.3
--- NOTE | 2023-11-24 15:03 | P.BASOAP ---
Subjective Progress Note Date: 11/24/23 DATE OF SERVICE: 11/24/23 CHIEF COMPLAINT: Status post sleeve gastrectomy HISTORY OF PRESENT ILLNESS: Connie Lord is a 68-year-old female status post sleeve gastrectomy 08/09/2023. She is over 3 months out. She has lost 40 pounds. She is losing 10 pounds per month. Her protein intake is daily 70 grams. Her carbohydrate intake is 58 g daily. She is keeping track of foods. She has increased air with eating. She is concerned for her skin. At height of 5 feet 8 inches, her ideal body weight is 163 pounds. She comes in 193 pounds from 237 pounds, 3 months ago. She has lost 44 pounds in over 3 months. Her body mass index was 6.1 and is 29.3. Lifetime weight loss 44 pounds. Lifetime percent excess weight loss 59%. She is 30 pounds overweight. PHYSICAL EXAM: VITAL SIGNS: Height 5 foot 8 inches, weight 193 pounds. BMI 29.3 Vital Signs Temp 98.9 F 11/24/23 14:06 Pulse 67 11/24/23 14:06 Resp 16 11/24/23 14:06 BP 151/69 11/24/23 14:06 Pulse Ox FiO2 GENERAL: Well-developed in no acute distress. HEENT: No scleral icterus. Extraocular movements grossly intact. Hears conversational speech. No nasal drainage. NECK: Supple without lymphadenopathy. CHEST: Nonlabored respirations with equal bilateral excursions. CARDIOVASCULAR: Regular rate and regular rhythm. Distal 2+ pulses. ABDOMEN: Obese, soft, nontender, nondistended. MUSCULOSKELETAL: No clubbing, cyanosis. NEURO: No focal or lateralizing signs. Cranial nerves 2 through 12 grossly within normal limits. PSYCH: Appropriate affect. Alert and oriented to person, place and time. SKIN: Good skin turgor. Well perfused. LABS: Reviewed. WBC elevated. Cholesterol elevated. ASSESSMENT: 1. Morbid obesity due to excess calories 2. Body mass index of 36.1 down to 29.3 3. Osteoarthritis of the knees. 4. Osteoarthritis of the lower back. 5. Hypertensive heart disease. 6. Gastroesophageal reflux disease 7. Hypertension 8. Fatty liver disease 9. Diabetes type 2, [id number] 10. Leukocytosis 11. Hypercholesterolemia 12. Secondary hyperparathyroidism 13. Abnormal EKG 14. Positive urine drug screen for alcohol 15. Ventral hernia 16. Hypertrophic scarring 17. Status post sleeve gastrectomy 18. Dietary surveillance and counseling 19. Leukocytosis PLAN: 1. Dietary surveillance and counseling reviewed. Recommend target protein intake 80 to 100 grams daily. 2. Recommend carbohydrate intake less than 100 g daily. 3. Recommend fluid intake of 128 oz daily. 4. Continue food tracking. 5. Recommend bariatric labs 6. Follow-up at 6 months postop Objective - Vital Signs Vital signs: Vital Signs Temp 98.9 F 11/24/23 14:06 Pulse 67 11/24/23 14:06 Resp 16 11/24/23 14:06 BP 151/69 11/24/23 14:06 Pulse Ox FiO2 Intake & Output 11/23/23 11/24/23 11/24/23 18:59 06:59 18:59 Weight 87.543 kg Assessment/Plan Plan: Date: 11/24/23 Initial Weight: 107.501 kg Initial BMI: 36.0 Current Weight: 87.543 kg Current BMI: 29.3 Type of Surgery: Vertical Sleeve Gastrectomy Total Volume in Band: Previous Volume: Volume Removed: Volume Added: Band Size:
== END ==
LOC: BARWHC3 13:40
PROVIDERS: ATTEND Surgery Plastic and Reconstructive Surgery
DX: E66.01 Morbid (severe) obesity due to excess calories (principal); M17.0 Bilateral primary osteoarthritis of knee; M47.816 Spondylosis without myelopathy or radiculopathy, lumbar region; K21.9 Gastro-esophageal reflux disease without esophagitis; K76.0 Fatty (change of) liver, not elsewhere classified; I11.9 Hypertensive heart disease without heart failure; E11.9 Type 2 diabetes mellitus without complications; D72.829 Elevated white blood cell count, unspecified; E78.00 Pure hypercholesterolemia, unspecified; R82.5 Elevated urine levels of drugs, medicaments and biological substances; N25.81 Secondary hyperparathyroidism of renal origin; R94.31 Abnormal electrocardiogram [ECG] [EKG]; K43.9 Ventral hernia without obstruction or gangrene; L91.0 Hypertrophic scar; Z71.3 Dietary counseling and surveillance; Z90.3 Acquired absence of stomach [part of]; Z98.84 Bariatric surgery status; Z68.29 Body mass index [BMI] 29.0-29.9, adult; Z88.2 Allergy status to sulfonamides; Z91.048 Other nonmedicinal substance allergy status; Z88.1 Allergy status to other antibiotic agents; Z88.8 Allergy status to other drugs, medicaments and biological substances
CPT/HCPCS: 97803; G0463; 99211

== ENCOUNTER → 2023-12-09 | Outpatient (CLI) | payer MEDICARE, BC ==
[2023-12-09 09:39] LABS: Partial Thromboplastin Time 24.5 sec (22.0-30.0); Prothrombin Time 10.9 sec (10.0-12.5)
[2023-12-09 14:20] LABS: HCT 44.8 % (37.2-46.3); HGB 14.5 g/dL (12.0-15.0); MCH 29.5 pg (27.0-32.0); MCHC 32.4 g/dL (32.0-37.0); MCV 91.1 FL (80.0-97.0); Mean Platelet Volume 13.1 FL (9.5-12.2); NRBC Per 100 WBC 0 X 10*3/uL (0.00-0.01); Platelet Count 201 X 10*3/uL (140-440); RBC 4.92 X 10*6/uL (4.10-5.20); RDW 13.3 % (11.5-14.5); WBC 5.93 X 10*3/uL (4.50-10.00)
[2023-12-09 15:43] LABS: Prealbumin 16.9 mg/dL (18.0-42.0)
[2023-12-09 15:48] LABS: % Iron Saturation 23.72 (12.00-45.00); Chol/HDL Ratio 2.72 Ratio; Iron 65 UG/DL (50-170); LDL Cholesterol,Calculated 104.1 mg/dL (0.0-131.0); Magnesium 1.9 mg/dL (1.5-2.4); Phosphorus 3.4 mg/dL (2.4-5.1); Total Iron Binding Capacity 274 UG/DL (228-460); VLDL Calculation 17.92 mg/dL (5.00-40.00)
[2023-12-09 15:49] LABS: ALT 23 U/L (8-44); AST 24 U/L (13-35); Albumin 4.2 g/dL (3.8-4.9); Albumin/Globulin Ratio 1.91 Ratio (1.60-3.17); Alkaline Phosphatase 90 U/L (41-126); BUN/Creat Ratio 16.14 Ratio (12.00-20.00); Blood Urea Nitrogen 11.3 mg/dL (9.0-27.0); Calcium 9.3 mg/dL (8.7-10.3); Carbon Dioxide 22.5 mmol/L (21.6-31.8); Chloride 109 mmol/L (96-109); Ferritin 88.9 ng/mL (10.0-291.0); Globulin 2.2 g/dL (1.6-3.3); Glucose 103 mg/dL (70-110); Sodium 144 mmol/L (135-145); Total Bilirubin 0.4 mg/dL (0.3-1.2); Total Protein 6.4 g/dL (6.2-8.2)
[2023-12-10 14:44] LABS: Zinc, Serum 107 ug/dL (60-130)
== END | disposition home or self-care (01) ==
LOC: LABWHC1 08:51
PROVIDERS: ATTEND Surgery Plastic and Reconstructive Surgery
DX: E66.01 Morbid (severe) obesity due to excess calories (principal); E89.1 Postprocedural hypoinsulinemia; D50.8 Other iron deficiency anemias; K90.89 Other intestinal malabsorption; K74.1 Hepatic sclerosis; T56.894A Toxic effect of other metals, undetermined, initial encounter; K50.90 Crohn's disease, unspecified, without complications; N19 Unspecified kidney failure
CPT/HCPCS: 36415; 80053; 80061; 82306; 82525; 82607; 82728; 82746; 83036; 83540; 83550; 83735; 83970; 84100; 84134; 84255; 84425; 84443; 84590; 84630; 85027; 85610; 85730

== ENCOUNTER → 2024-03-04 | Outpatient (CLI) | payer MEDICARE, BC ==
[2024-03-04 10:49] LABS: Partial Thromboplastin Time 24.7 sec (22.0-30.0); Prothrombin Time 10.9 sec (10.0-12.5)
[2024-03-04 12:54] LABS: HCT 43.4 % (37.2-46.3); MCH 29.2 pg (27.0-32.0); MCHC 32.3 g/dL (32.0-37.0); MCV 90.4 FL (80.0-97.0); Mean Platelet Volume 12.8 FL (9.5-12.2); NRBC Per 100 WBC 0 X 10*3/uL (0.00-0.01); Platelet Count 222 X 10*3/uL (140-440); RDW 13.8 % (11.5-14.5); WBC 5.33 X 10*3/uL (4.50-10.00)
[2024-03-04 13:23] LABS: % Iron Saturation 20.82 (12.00-45.00); ALT 25 U/L (8-44); AST 27 U/L (13-35); Albumin 4.2 g/dL (3.8-4.9); Albumin/Globulin Ratio 1.75 Ratio (1.60-3.17); Alkaline Phosphatase 94 U/L (41-126); Blood Urea Nitrogen 11.9 mg/dL (9.0-27.0); Calcium 9.7 mg/dL (8.7-10.3); Carbon Dioxide 25.4 mmol/L (21.6-31.8); Chloride 106 mmol/L (96-109); Chol/HDL Ratio 2.64 Ratio; Globulin 2.4 g/dL (1.6-3.3); Glucose 151 mg/dL (70-110); Iron 56 UG/DL (50-170); Phosphorus 3.9 mg/dL (2.4-5.1); Potassium 4.6 mmol/L (3.5-5.5); Sodium 141 mmol/L (135-145); Total Bilirubin 0.3 mg/dL (0.3-1.2); Total Iron Binding Capacity 269 UG/DL (228-460); Total Protein 6.6 g/dL (6.2-8.2)
[2024-03-04 15:28] LABS: Prealbumin 17.8 mg/dL (18.0-42.0)
[2024-03-06 13:38] LABS: Zinc, Serum 88 ug/dL (60-130)
[2024-03-07 12:57] LABS: Vit B1(Thiamine) 72 ug/L (38-122)
[2024-03-08 06:19] LABS: Vitamin A 41 ug/dL (38-106)
[2024-03-16 22:40] LABS: Selenium 87 mcg/L (63-160)
== END | disposition home or self-care (01) ==
LOC: LABPAT 09:21
PROVIDERS: ATTEND Surgery Plastic and Reconstructive Surgery
DX: E89.1 Postprocedural hypoinsulinemia (principal); D50.8 Other iron deficiency anemias; D50.9 Iron deficiency anemia, unspecified; E44.0 Moderate protein-calorie malnutrition; E44.1 Mild protein-calorie malnutrition; E45 Retarded development following protein-calorie malnutrition; E46 Unspecified protein-calorie malnutrition; E55.9 Vitamin D deficiency, unspecified; K74.1 Hepatic sclerosis; N19 Unspecified kidney failure; T56.894A Toxic effect of other metals, undetermined, initial encounter; K50.90 Crohn's disease, unspecified, without complications
CPT/HCPCS: 80053; 80061; 82306; 82525; 82607; 82728; 82746; 83036; 83540; 83550; 83735; 83970; 84100; 84134; 84255; 84425; 84443; 84590; 84630; 85027; 85610; 85730

== ENCOUNTER → 2024-05-10 | Outpatient (CLI) | payer MEDICARE, BC ==
[2024-05-10 16:32] VITALS: BP 149/77; PULSE 65; RESP 16; TEMP 98.6; BMI 25.4
--- NOTE | 2024-05-10 16:54 | P.BASOAP ---
Subjective Progress Note Date: 05/10/24 She is doing well and at target. She is taking mag, calcium, and doing well. She is on probiotics. Labs reviewed. Needs more proteins. She is getting steroid injections. Objective - Vital Signs Vital signs: Vital Signs Temp 98.6 F 05/10/24 16:27 Pulse 65 05/10/24 16:27 Resp 16 05/10/24 16:27 BP 149/77 05/10/24 16:27 Pulse Ox FiO2 Intake & Output 05/09/24 05/10/24 05/10/24 18:59 06:59 18:59 Weight 75.75 kg Assessment/Plan Plan: Date: 05/10/24 Initial Weight: 107.501 kg Initial BMI: 36.0 Current Weight: 75.75 kg Current BMI: 25.4 Type of Surgery: Total Volume in Band: Previous Volume: Volume Removed: Volume Added: Band Size:
== END ==
LOC: BARWHC3 15:05
PROVIDERS: ATTEND Surgery Plastic and Reconstructive Surgery
DX: E66.01 Morbid (severe) obesity due to excess calories (principal); Z88.2 Allergy status to sulfonamides; Z91.048 Other nonmedicinal substance allergy status; Z88.8 Allergy status to other drugs, medicaments and biological substances; Z88.1 Allergy status to other antibiotic agents; Z68.25 Body mass index [BMI] 25.0-25.9, adult
CPT/HCPCS: 99211

== ENCOUNTER → 2024-12-12 | Outpatient (CLI) | payer MEDICARE, BC ==
--- NOTE | 2024-12-12 13:41 | MM ---
Reason for Exam: Screening (asymptomatic). Last screening mammogram was performed 12 month(s) ago. Patient History: Menarche at age 13. First Full-Term at age 27. Postmenopausal. Patient has history of breast feeding. Currently using Estrogen, beginning at age 49 for 16 years. Currently using Progesterone, beginning at age 49 for 16 years. Patient used Hormonal Contraceptives for 7 years. Paternal aunt had breast cancer, age 70. Paternal aunt had breast cancer, age 75. Risk Values: Shawanda 5 year model risk: 1.9%. NCI Lifetime model risk: 5.9%. Prior Study Comparison: 08/20/2021 Bilateral Screening Mammogram, [facility]. 09/10/2022 Bilateral MG 3D screening mammo w/cad, [facility]. 11/24/2023 Bilateral MG 3D screening mammo w/cad, [facility]. Tissue Density: The breasts are heterogeneously dense, which may obscure small masses. Findings: Analyzed By CAD. Right breast: There is no suspicious group of microcalcifications or new suspicious mass. Left breast: There is no suspicious group of microcalcifications or new suspicious mass. Overall Assessment: Negative, BI-RAD 1 Management: Screening Mammogram of both breasts in [address] [facility] will attempt to contact patient to return for supplemental views and ultrasound if indicated. Patient should continue monthly self-breast exams. A clinical breast exam by your physician is recommended on an annual basis. This exam should not preclude additional follow-up of suspicious palpable abnormalities. Note on Shawanda scores and lifetime risk: 1. A Shawanda score greater than 3% is considered moderate risk. If this is the case, consider specialist referral to assess eligibility for a risk reducing agent. 2. If overall lifetime risk for the development of breast cancer is 20% or higher, the patient may qualify for future screening with alternating mammogram and breast MRI. [facility], , 12/12/2024 1:39 PM. Electronically signed and approved by: Edgar Spaulding DO
== END | disposition home or self-care (01) ==
LOC: RADMAMWWP 13:02
PROVIDERS: ATTEND Family Medicine
DX: Z12.31 Encounter for screening mammogram for malignant neoplasm of breast (principal); R92.333 Mammographic heterogeneous density, bilateral breasts; Z78.0 Asymptomatic menopausal state; Z92.0 Personal history of contraception; Z80.3 Family history of malignant neoplasm of breast
CPT/HCPCS: 77063; 77067